=== PATIENT | female | born 1960 | race Caucasian/White ===

== ENCOUNTER → 2016-07-14 20:19 | Outpatient (CLI) | payer MEDICAID ==
[2016-06-20 20:15] VITALS: BMI 31.5
[~2016-07-14 20:19] MED LIST: BACTROBAN NASAL1 GM NASAL; BUDEPRION XL300 MG PO; BUTALB-APAP-CA1 EACH; CELEXA10 MG PO; CELEXA20 MG PO; CHRONULAC30 ML PO; CLONAZEPAM2 MG/TAB PO; CYCLOBENZAPRINE5 MG PO; ELIQUIS2.5 MG PO; HYDROCODON-ACE1 EAC7 PO; HYSINGLA ER30 MG PO; IBUPROFEN800 MG PO; K-DUR20 MEQ PO; KLONOPIN1 MG PO; LISINOPRIL5 MG PO; LITHIUM CARBON300 MG PO; NEURONTIN 300300 MG PO; NORCO 7.5/325 T1 TA1; NORVASC10 MG PO; OXYCODONE HCL5 MG PO; PERCOCET 10/3251 TA1 PO; REMERON15 MG PO; SYNTHROID25 MCG PO; TRIGLIDE160 MG PO; XANAX2 MG PO; ZESTORETIC 20/21 TAB PO; ZESTRIL40 MG PO
== END | disposition home or self-care (01) ==
LOC: D.LABREF 20:19
DX: M17.12 Unilateral primary osteoarthritis, left knee (principal); Z11.8 Encounter for screening for other infectious and parasitic diseases

== ENCOUNTER 2016-07-28 08:00 | Inpatient (IN) | payer MEDICAID ==
[~2016-07-28] VITALS: Ht 172.7 cm; Wt 95.0 kg
[~2016-07-28 08:00] MED LIST changes: -BACTROBAN NASAL1 GM NASAL; -ELIQUIS2.5 MG PO; -OXYCODONE HCL5 MG PO
[2016-07-28 08:12] LABS: BASOPHILS 0.5 % (0.0-2.0); EOSINOPHILS 1.3 % (0-7); HEMATOCRIT 43.3 % (36.0-48.0); HEMOGLOBIN 14.5 g/dL (12-16); IMMATURE GRANULOCYTES 0.1 % (0-5); LYMPHOCYTES 27.7 % (15-50); MCH 32.2 pg (26.0-34.0); MCHC 33.5 g/dL (31.0-37.0); MCV 96.2 fL (80.0-100.0); MONOCYTES 4.1 % (2-11); NEUTROPHILS 66.3 % (40-80); PLATELET COUNT 254 10x3/uL (130-400); RDW 13.1 % (11.5-14.5); WBC 7.8 10x3/uL (4.8-10.8)
[2016-07-28 08:13] LABS: APPEARANCE CLEAR (CLEAR); BILIRUBIN NEGATIVE (NEGATIVE); COLOR YELLOW (YELLOW); GLUCOSE NEGATIVE (NEGATIVE); KETONE NEGATIVE (NEGATIVE); LEUKOCYTE ESTERASE NEGATIVE (NEGATIVE); NITRITE NEGATIVE (NEGATIVE); PROTEIN NEGATIVE (NEGATIVE); UROBILINOGEN NORMAL (NORMAL)
[2016-07-28 08:21] LABS: ANION GAP 11.8 mmol/L (8-16); CALCIUM 9.7 mg/dL (8.5-10.1); CARBON DIOXIDE 28.2 mmol/L (21.0-32.0); CREATININE - SERUM 1.1 mg/dL (0.6-1.3)
[2016-07-28 08:25] LABS: INR 0.92 (0.85-1.17); PROTIME 12.2 SECONDS (11.6-15.0)
[2016-07-28] MEDS ORDERED: BACTROBAN NASAL1 GM NASAL (09:51)
[2016-08-02] VITALS (11 sets, daily range): BP systolic 80–140; BP diastolic 42–87; Ht 172.7 cm; Wt 95.0 kg
--- NOTE | 2016-08-02 10:50 | NUR ---
L-FOOT AND LEG WASHED WITH HIBICLENS AND ALCOHOL PRIOR TO CHLORPREP PER D.N.
--- NOTE | 2016-08-02 14:33 | NUR ---
ASSESSING PT LEFT KNEE. CARRINGTON WRAP SATURATED AND DRIPPING DOWN THIGH AND CALF. DRESSING REMOVED DOWN TO INCISION AND NOTED TOP/BOTTOM OF INCISION DRIPPING BLOOD. 4X4S ABD X 2 [address] CARRINGTON WRAP X [address] MENDOZA NOTIFIED. INSTRUCTED TO NOT PLACE ON CPM MACHINE TONIGHT.
--- NOTE | 2016-08-02 14:49 | NUR ---
1430-BP87/56 P 69 IV FLUIDS INCREASED TO 200CC/HR 1445-BP 79/47 P 61 IV FLUIDS INCREASED TO 400CC/HR 1450 BP 80/52 P 58. IV CONTINUES AT 400CC/HR NO NEW BLEEDING NOTED ON LEFT LEG/KNEE
--- NOTE | 2016-08-02 17:53 | NUR ---
1745 BP 97/52 P 66 NO ACTIVE OR NEW BLEEDING NOTED TO LEFT LEG/KNEE. IV FLUIDS TURNED DOWN TO 100CC/HR. WILL MONITOR BP Q 1 HR TONIGHT
[2016-08-03] VITALS: BP 101/71
[2016-08-03 04:00] VITALS: BP 100/54
[2016-08-03 05:29] LABS: HEMATOCRIT 32.2 % (36.0-48.0); HEMOGLOBIN 10.3 g/dL (12-16); MCH 31.1 pg (26.0-34.0); MCV 97.3 fL (80.0-100.0); MEAN PLATELET VOLUME 9.4 fL (7.4-10.4); RBC 3.31 10x6/uL (4.00-5.40); RDW 13.2 % (11.5-14.5); WBC 7.6 10x3/uL (4.8-10.8)
--- NOTE | 2016-08-03 07:00 | OP ---
PATIENT NAME: SWAPNA CAR MEDICAL RECORD: [id number] :64 LOCATION:D.MS [id number] ADMISSION DATE:08/02/16 SURGEON: EARLINE BRADFORD MD DATE OF OPERATION: 08/02/2016 PREOPERATIVE DIAGNOSIS: Left knee degenerative joint disease. POSTOPERATIVE DIAGNOSIS: Left knee degenerative joint disease. PROCEDURE PERFORMED: Left knee total knee arthroplasty using Biomet Vanguard system. SURGEON: Rafael Bradford MD ANESTHESIA: General with a block for postop pain. TOURNIQUET TIME: 44 minutes. ESTIMATED BLOOD LOSS: Minimal. CONDITION: She tolerated the procedure well, was transferred to recovery room in stable condition at termination of the procedure. INDICATIONS: This is a 56-year-old female with advanced degenerative changes in her knee. This has gotten progressively worse. She is no longer tolerating it. She presents wanting to proceed with the knee replacement. We did discuss the risks, benefits, and alternatives of this including blood loss, scar, pain, need for further procedure, anesthesia risk, nerve, artery and vein injuries. She understood and wished to proceed. OPERATIVE REPORT: The patient was taken to the operating room and placed in supine position. General anesthesia was obtained. She did get a block in the preop holding area. In the operating room, the left knee was confirmed to be the correct knee. It was then prepped and draped in standard fashion. We did do a timeout confirming the left knee to be the correct knee. She additionally had a positive swab; therefore, she did receive Ancef and vancomycin. Once this was accomplished and the initial prep was accomplished, she had a secondary ChloraPrep and then Ioban dressing placement. I then proceeded to make a midline incision followed by a medial parapatellar incision. After this was accomplished, I then proceeded to remove the fat pad. Elevated the medial soft tissue sleeve. The femur was entered, the guide was placed. Distal femoral cut was made. The distal femur was sized at a 60. The rest of the distal femoral cuts were then established. With this having been accomplished, I then subluxed the tibia forward, placed the guide and made a proximal tibial cut. I then placed the [address], placed the tibial tray, which was a 67 and then took the knee through range of motion and marking for rotation of the knee. I then went back and punched for a 67 tibia. Once this was accomplished, I then took off the back side of the patella, measured this at a 31, drilled the 3 peg holes for the 31 patellar. Trialed all 3 components which felt very good very stable in flexion and extension. I then copiously irrigated. Following which, I cemented into place a 60 femur, ____ tibia with a 3 peg hole 31 patellar button. The leg was held in extension while the cement dried. Once the cement was dry, I removed the excess cement and proceeded to place the final 12 poly. She was copiously irrigated. Following which, she was closed with a #1 barbed PDS followed by 2-0 Vicryl, then diane, placed in soft dressing, awakened and OPERATIVE REPORT [id number] SWAPNA CAR transferred to the recovery room in stable condition, having tolerated the procedure well. We will get her started on total knee arthroplasty protocols and proceed from this juncture. TRANSINT:[id number] Voice Confirmation ID: [id number] DOCUMENT ID: [id number] EARLINE BRADFORD MD at 0700 CC: [id number] DICTATION DATE: 08/02/16 1151 COMMUNITY MUSIC THERAPIST: 08/02/16 1221 ADM IN [place] [id number] [place] [id number]
[2016-08-03 07:58] VITALS: BP 105/50
--- NOTE | 2016-08-03 08:17 | CN ---
PATIENT NAME:SWAPNA CAR MEDICAL RECORD: [id number] : 64 LOCATION:D.[facility] ADMIT DATE: 08/02/16 ACCOUNT: [id number] CONSULTING PHYSICIAN: JONE MONTANA MD REFERRING PHYSICIAN: EARLINE BRADFORD MD DATE OF CONSULTATION: 08/02/2016 REQUESTING PHYSICIAN: Rafael Bradford MD. REASON FOR CONSULTATION: Medical management. HISTORY OF PRESENT ILLNESS: This 56-year-old white female was admitted for elective left total knee arthroplasty by Dr. Bradford today. Her primary care provider is a nurse practitioner or PA at "[facility]." She has a history of arthritis, depression, hypertension, anxiety. PAST SURGICAL HISTORY: ORIF of clavicle fracture, ORIF distal radius fracture. She has had a hysterectomy and now left total knee arthroplasty. ALLERGIES: CODEINE AND DARVOCET. HOME MEDICATIONS: Include Norvasc 10 mg a day, lisinopril 5 mg a day, Celexa 20 mg a day, Remeron 15 mg at bedtime, gabapentin 300 mg 3 times a day, Xanax 2 mg 3 times a day. SOCIAL HISTORY: She lives with friends. She is disabled. HABITS: She smokes. Denies alcohol. She admits to marijuana. FAMILY HISTORY: Unknown. PHYSICAL EXAMINATION: VITAL SIGNS: Temperature 96.8, pulse 59, respirations 18, blood pressure 81/51, O2 sat 98% on room air. GENERAL: She is little lethargic due to pain medicine. HEENT: Grossly within normal limits. NECK: Supple. No thyromegaly. HEART: Regular rate and rhythm. LUNGS: Clear. ABDOMEN: Soft. EXTREMITIES: Left knee is in a dressing. NEUROLOGIC: Again, lethargic probably due to pain medicines. ASSESSMENT: 1. Hypertension. 2. Osteoarthritis, status post left total knee arthroplasty. 3. Anxiety. 4. Depression. PLAN: We will hold her blood pressure medicines. We will give her some fluids. We will monitor her medical problems while she is in the hospital. Thank for the consult. We will continue to follow. TRANSINT:[id number] Voice Confirmation ID: [id number] DOCUMENT ID: [id number] CONSULT REPORT [id number] SWAPNA CAR WILLIAM MD at 0817 CC: [id number] DICTATION DATE: 08/02/16 185 SORTING COWS WORKER: 08/02/16 221 ADM IN [place] [id number] [place] [id number]
--- NOTE | 2016-08-03 11:17 | NUR ---
PT SEEN THIS AM. WAS SMOKING IN ROOM THIS AM. CIGARETTES AND MEDICAL ADVISOR REMOVED. APOLOGIZED. WALKED FEW STEPS WITH THERAPY. DRESSING TO LEFT LEG NOTED WITH SMALL AMOUNT OF DRY DRAINAGE NOTED. CURRENTLY IN CHAIR
[2016-08-03 12:17] VITALS: BP 106/61
--- NOTE | 2016-08-03 13:34 | NUR ---
* Is the patient Alert and Oriented? Yes 0 * How many steps to enter\exit or inside your home? 7-8 0 * PCP SUSANA Zabala 0 * Pharmacy [facility] 0 * Preadmission Environment Home with Family 0 * ADLs Independent 0 * Equipment Rolling Walker 0 * List name and contact numbers for known caregivers / representatives who currently or will assist patient after discharge: Sister in Law - Jeannine Correia [phone] 0 * Additional services required to return to the preadmission environment? Yes 0 * Can the patient safely return to the preadmission environment? Yes 0 * Has this patient been hospitalized within the prior 30 days at any hospital? No 08/03/2016 13:31 DCP: Discharge Planning Patient Name: SWAPNA CAR Admission Status: Elective Accout number: [id number] Admission Date: 08-02-2016 : 1960 Admission Diagnosis: Attending: FREDA Current LOS: 1 Anticipated DC Date: 08-04-2016 Planned Disposition: Outpatient PT\OT Primary Insurance: MEDICAID [place] Discharge Planning Comments: CM met with patient to assess dc plans/needs. Patient states she lives at home with family & is independent with all ADL's. She has a rolling walker. At dc, she will go stay with her sister in law for a couple of weeks. She has chosen [facility] for outpatient physical therapy. Appt. scheduled for 08/05 @ 3415. Anticipate DC tomorrow afternoon. CM will follow. Education Dean: Belinda Cloin
[2016-08-03 15:53] VITALS: BP 101/46
--- NOTE | 2016-08-03 18:19 | NUR ---
PT CURRENTLY IN CP MACHINE WITH SCD ON AND NO BLEEDING NOTED ON DRESSING WHICH REMAINS DRY AND INTACT. CALL LIGHT IN REACH AND PAIN IS CONTROLLED.
--- NOTE | 2016-08-03 19:00 | NUR ---
PATIENT IN BED WATCHING TV ON CPM. HOB 30 DEGREES. AAOX4. RR EVEN AND UNLABORED. 0 S/S OF DISTRESS. STATES PAIN IS A 10/10. IV TO RIGHT FA PATENT WITH NO REDNESS OR SWELLING. DRESSING TO LEFT KNEE IN PLACE WITH SMALL AMOUNT OF OLD, DRIED BLOOD. SCD'S IN ROOM BUT OFF. SRX2. BED LOW. CALL LIGHT WITHIN REACH.
[2016-08-03 21:00] VITALS: BP 146/53
[2016-08-04 04:00] VITALS: BP 114/66
[2016-08-04 05:02] LABS: HEMATOCRIT 30.8 % (36.0-48.0); HEMOGLOBIN 9.9 g/dL (12-16); MCH 31.7 pg (26.0-34.0); MCHC 32.1 g/dL (31.0-37.0); MCV 98.7 fL (80.0-100.0); MEAN PLATELET VOLUME 9.3 fL (7.4-10.4); RBC 3.12 10x6/uL (4.00-5.40); RDW 13.3 % (11.5-14.5); WBC 7.8 10x3/uL (4.8-10.8)
--- NOTE | 2016-08-04 07:25 | NUR ---
PATIENT SPILLED COFFEE ON HER BED. ASSISTED SEAM STEAMER, TAKING PATIENT OFF OF CPM, CHANGING LINENS. SEAM STEAMER ASSISTED PATIENT TO THE BATHROOM, USING WALKING. PATIENT VOIDED, BACK TO BED WITH ASSIST FROM SEAM STEAMER. ASSISTED SEAM STEAMER PUTTING CPM BACK ON. PATIENT STATED "I THINK I CAN HAVE MY NEXT PAIN PILL AT 0800. MY PAIN IS AT A 10 SO I WOULD LIKE TO HAVE MY PAIN MEDICATION SOON I CAN GET IT." REMINDED PATIENT NOT TO GET UP BY HERSELF AT ANY TIME WHILE HERE, PATIENT VERBALIZED UNDERSTANDING. BED ALARM ON.
[2016-08-04 08:08] VITALS: BP 114/70
--- NOTE | 2016-08-04 09:51 | NUR ---
08/04/2016 9:49 DCP: Discharge Planning Patient Name: SWAPNA CAR Encounter No: [id number] : 1960 Primary Insurance: MEDICAID [facility] DC Date: 08-04-2016 Planned Disposition: Outpatient PT\OT External Planned Provider: [facility] DCP follow-up note: DC order rec'd. Patient and family in agreement with discharge plan. No changes to plan. Belinda Colin
[2016-08-04 11:18] VITALS: BP 146/73
[2016-08-04] MEDS ORDERED: ELIQUIS2.5 MG PO (12:18)
[2016-08-04] MEDS ORDERED: OXYCODONE HCL5 MG PO (12:18)
--- NOTE | 2016-08-04 14:30 | NUR ---
D/C IV WITH CATH INTACT. DISCHARGE INSTRUCTIONS COMPLETED WITH PATIENT. PATIENT VERBALIZED UNDERSTANDING AND DENIES QUESTIONS. CHANGED DRESSING TO LEFT KNEE. STERILE TECHNIQUE MAINTAINED. PATIENT TOLERATED WELL. AQUACEL DRESSING APPLIED.
--- NOTE | 2016-08-04 14:51 | NUR ---
PATIENT LEFT VIA WHEELCHAIR
--- NOTE | 2016-09-13 16:33 | DS ---
PATIENT:SWAPNA CAR :[birth year] MEDICAL RECORD: [id number] DISCHARGE SUMMARY ADMISSION DATE: 08/02/16 DISCHARGE DATE: 08/04/16 DATE OF ADMISSION: 08/02/2016 DATE OF DISCHARGE: 08/04/2016 ADMITTING DIAGNOSIS: Left knee degenerative joint disease. DISCHARGE DIAGNOSES: Left knee degenerative joint disease, acute blood loss anemia. HISTORY OF PRESENT ILLNESS: This is a pleasant 56-year-old female with advanced degenerative changes of her left knee. She presented to the hospital and underwent a left total knee arthroplasty. She tolerated the procedure well. She progressed nicely with her postop therapy. It was felt that by the , she could be discharged to home to continue on rehabing of a total knee arthroplasty with outpatient physical therapy. She is going to continue on pain medications, anticoagulation therapy. She was then discussed with wound care to keep clean the knee incision. She is supposed to see me back in the office in about 2 weeks and call if she has any problems. TRANSINT:[id number] Voice Confirmation ID: [id number] DOCUMENT ID: [id number] EARLINE MENDOZA MD at 1633 CC: [id number] DICTATION DATE: 09/06/16 1257 HANDKERCHIEF MAKER: 09/07/16 0136 DIS IN 08/04/16 [place] [id number] [place] [address]
== END 2016-08-04 14:55 | disposition home or self-care (01) | DRG 470 ==
LOC: D.SDCHOLD 08-02 06:05 → D.MS 08-02 06:05 → D.SDCHOLD 08-02 08:00 → D.MS 08-02 10:59
PROVIDERS: ADMIT Orthopaedic Surgery Sports Medicine
PROC: 0SRD0J9 Replacement of Left Knee Joint with Synthetic Substitute, Cemented, Open Approach (ICD-10-PCS; principal; 2016-08-02 09:15)
DX: M17.12 Unilateral primary osteoarthritis, left knee (principal); G62.9 Polyneuropathy, unspecified; K75.9 Inflammatory liver disease, unspecified; F32.9 Major depressive disorder, single episode, unspecified; F41.9 Anxiety disorder, unspecified; I10 Essential (primary) hypertension; F17.200 Nicotine dependence, unspecified, uncomplicated

== ENCOUNTER 2016-09-07 15:16 | Emergency (ER) | payer MEDICAID ==
[2016-08-02 12:45] VITALS: BMI 31.8
[~2016-09-07 15:16] MED LIST changes: +BACTROBAN NASAL1 GM NASAL; +ELIQUIS2.5 MG PO; +OXYCODONE HCL5 MG PO
[2016-09-07 18:32] LABS: BASOPHILS 0.3 % (0.0-2.0); HEMATOCRIT 41.3 % (36.0-48.0); HEMOGLOBIN 12.9 g/dL (12-16); IMMATURE GRANULOCYTES 0.3 % (0-5); LYMPHOCYTES 20.7 % (15-50); MCH 31.1 pg (26.0-34.0); MCHC 31.2 g/dL (31.0-37.0); MCV 99.5 fL (80.0-100.0); MEAN PLATELET VOLUME 9.1 fL (7.4-10.4); MONOCYTES 6.9 % (2-11); NEUTROPHILS 70.8 % (40-80); RBC 4.15 10x6/uL (4.00-5.40); RDW 13.2 % (11.5-14.5); WBC 15.2 10x3/uL (4.8-10.8)
[2016-09-07 19:02] LABS: PLATELET COUNT 272 10x3/uL (130-400)
== END 2016-09-07 19:30 | disposition home or self-care (01) ==
LOC: D.ER 15:16
PROVIDERS: Nurse Practitioner Family
DX: M25.462 Effusion, left knee (principal); W19.XXXA Unspecified fall, initial encounter; Y93.89 Activity, other specified; Y92.89 Other specified places as the place of occurrence of the external cause; F17.200 Nicotine dependence, unspecified, uncomplicated

== ENCOUNTER 2016-09-23 13:26 | Emergency (ER) | payer MEDICAID ==
[2016-08-02 12:45] VITALS: BMI 31.8
== END 2016-09-23 15:49 | disposition home or self-care (01) ==
LOC: D.ER 13:26
DX: S80.02XA Contusion of left knee, initial encounter (principal); W19.XXXA Unspecified fall, initial encounter; Y93.89 Activity, other specified; Y92.019 Unspecified place in single-family (private) house as the place of occurrence of the external cause; S93.602A Unspecified sprain of left foot, initial encounter; F41.9 Anxiety disorder, unspecified; M54.5 Low back pain; F17.200 Nicotine dependence, unspecified, uncomplicated; F15.10 Other stimulant abuse, uncomplicated

== ENCOUNTER → 2016-10-25 15:00 | Outpatient (CLI) | payer MEDICAID ==
[2016-08-02 12:45] VITALS: BMI 31.8
== END | disposition home or self-care (01) ==
LOC: D.MRI 15:00
DX: R20.8 Other disturbances of skin sensation (principal)

== ENCOUNTER 2016-11-27 10:19 | Emergency (ER) | payer MEDICAID ==
[2016-08-02 12:45] VITALS: BMI 31.8
[2016-11-27 11:59] LABS: BASOPHILS 0.1 % (0-2); EOSINOPHILS 1.1 % (0-7); HEMATOCRIT 42.8 % (36.0-48.0); HEMOGLOBIN 14.4 g/dL (12-16); IMMATURE GRANULOCYTES 0.1 % (0-5); MCH 30.4 pg (26.0-34.0); MCHC 33.6 g/dL (31.0-37.0); MCV 90.5 fL (80.0-100.0); MEAN PLATELET VOLUME 9.3 fL (7.4-10.4); MONOCYTES 3.2 % (2-11); NEUTROPHILS 62.5 % (40-80); PLATELET COUNT 232 10x3/uL (130-400); RBC 4.73 10x6/uL (4.00-5.40); RDW 13.5 % (11.5-14.5); WBC 7.4 10x3/uL (4.8-10.8)
== END 2016-11-27 13:38 | disposition home or self-care (01) ==
LOC: D.ER 10:19
PROVIDERS: Nurse Practitioner Acute Care
DX: S23.3XXA Sprain of ligaments of thoracic spine, initial encounter (principal); X58.XXXA Exposure to other specified factors, initial encounter; Y93.89 Activity, other specified; Y92.89 Other specified places as the place of occurrence of the external cause; L03.116 Cellulitis of left lower limb; F17.200 Nicotine dependence, unspecified, uncomplicated

== ENCOUNTER 2016-12-05 11:43 | Inpatient (IN) | payer MEDICAID ==
[~2016-12-05] VITALS: Ht 172.7 cm; Wt 100.0 kg
[2016-12-05 12:45] LABS: BASOPHILS 0.4 % (0-2); EOSINOPHILS 2.6 % (0-7); HEMATOCRIT 38.1 % (36.0-48.0); HEMOGLOBIN 12.6 g/dL (12-16); IMMATURE GRANULOCYTES 0.1 % (0-5); LYMPHOCYTES 22.5 % (15-50); MCH 29.9 pg (26.0-34.0); MCHC 33.1 g/dL (31.0-37.0); MCV 90.3 fL (80.0-100.0); MEAN PLATELET VOLUME 9.4 fL (7.4-10.4); MONOCYTES 6.8 % (2-11); NEUTROPHILS 67.6 % (40-80); PLATELET COUNT 223 10x3/uL (130-400); RBC 4.22 10x6/uL (4.00-5.40); RDW 14.1 % (11.5-14.5); WBC 7.8 10x3/uL (4.8-10.8)
--- NOTE | 2016-12-05 13:00 | NUR ---
PT TO ROOM [address] [facility]. PT IS VERY SEDATED AND UNABLE TO ANSWER MOST QUESTIONS.SHE FALLS ASLEEP EASILY.HER SPEECH IS VERY GARBLED.UNABLE TO ANSWER QUESTIONS FOR EMERGENCY CONTACT,HT,WT.BOTTLES OF XANAX FOUND WHEN PT WAS DIGGING IN PURSE UPON ARRIVAL TO ROOM.MEDS TO PHARMACY,SHE IS UNABLE TO SIGN SHEET.FALL PREVENTION INITIATED.
[2016-12-05 13:09] LABS: C-REACTIVE PROTEIN 7.1 mg/dL (0.0-0.9); CALC OSMOLALITY 281 mosm/kg (275-300); CALCIUM 8.7 mg/dL (8.5-10.1); CARBON DIOXIDE 26.1 mmol/L (21.0-32.0); CHLORIDE - SERUM 107 mmol/L (98-107); CREATININE - SERUM 0.7 mg/dL (0.6-1.3); GLUCOSE 96 mg/dL (74-106); POTASSIUM - SERUM 4.7 mmol/L (3.5-5.1); SODIUM 141 mmol/L (136-145); UREA NITROGEN 16 mg/dL (7-18); eGFR NON AFRICAN AMERICAN > 90 mL/min (90-120)
--- NOTE | 2016-12-05 13:30 | NUR ---
IV ATTEMPTED X2 BY VIJAYA JEAN RN,BUT UNABLE TO OBTAIN IV.CALL TO [place] SALDA[facility]A
[2016-12-05 13:31] VITALS: BP 118/76; Ht 172.7 cm; Wt 100.0 kg
[2016-12-05 14:02] VITALS: BP 118/76
[2016-12-05 14:10] LABS: ERYTHROCYTE SEDIMENTATION RATE 23 mm/hr (0-30)
--- NOTE | 2016-12-05 15:25 | NUR ---
IV SITED BY VASCULAR NURSE AFTER MULTIPLE ATTEMTS TO LEFT AC,20G.
--- NOTE | 2016-12-05 15:30 | NUR ---
PT STII VERY LETHARGIC AT THIS TIME.HARD TO AROUSE.
--- NOTE | 2016-12-05 16:25 | NUR ---
HARD TO AROUSE JUST FOR BRIEF AMOUNT,VS 129/77,68,18,96.9,94% ON ROOM AIR.
--- NOTE | 2016-12-05 18:47 | NUR ---
REMAINS WITHOUT NEEDS.AWAKE NOW.HAS EATEN SOME DINNER.CONT PLAN OF CARE
--- NOTE | 2016-12-05 19:52 | NUR ---
IV SWOLLEN AND RED.IV DCD WITH CATH INTACT.
[2016-12-05 20:00] VITALS: BP 140/62
--- NOTE | 2016-12-05 20:00 | NUR ---
ASSESSMENT PER FLOWSHEET. NO IV HAS BEEN STUCK SEVERAL TIMES BY PREVIOUS SHIFT UNABLE TO OBTAIN IV SITE. WAS NOTIFIED BY JEFF HALL RN. PT SITTING UPRIGHT IN BED JERRICA BED ALARM MAT ON SR UP X1 CALL LIGHT WITHIN REACH. PT HAS FALLEN SEVERAL TIMES AT HOME.
--- NOTE | 2016-12-05 21:41 | NUR ---
C/O CHRONIC BACK PAIN. RATES PAIN LEVEL #6-8. IN HER BACK. OXI IR 5MG PO TAB ONE GIVEN FOR PAIN CONTROL.
--- NOTE | 2016-12-05 22:00 | NUR ---
PT EATING SANDWICH TRAY 4 ICE CREAMS AND A CUP OF COFFEE. HAS ALREADY DRANK 2 SODAS.
--- NOTE | 2016-12-06 | NUR ---
PT REQUESTING MORE COFFEE. COFFEE GIVEN TO PATIENT. VOIDED ON BEDPAN.
--- NOTE | 2016-12-06 03:00 | NUR ---
DRESSING TO LEFT KNEE C/D/I. EYES CLOSED RESPIRATIONS WITH EASE AND UNLABORED.
[2016-12-06 04:00] VITALS: BP 140/65
--- NOTE | 2016-12-06 04:10 | NUR ---
MINE FOREMAN HERE FOR BLOOD DRAW. PT C/O LOW BACK PAIN RATES PAIN LEVEL #6-8 OXI IR 5MG PO GIVEN FOR PAIN CONTROL. COFFEE GIVEN TO PATIENT.
--- NOTE | 2016-12-06 05:25 | NUR ---
RESTING IN BED WATCHING TV
[2016-12-06 05:50] LABS: BASOPHILS 0.4 % (0-2); EOSINOPHILS 3.2 % (0-7); HEMATOCRIT 36.3 % (36.0-48.0); HEMOGLOBIN 11.9 g/dL (12-16); IMMATURE GRANULOCYTES 0.1 % (0-5); LYMPHOCYTES 37.7 % (15-50); MCH 30.4 pg (26.0-34.0); MCHC 32.8 g/dL (31.0-37.0); MEAN PLATELET VOLUME 9.2 fL (7.4-10.4); MONOCYTES 7.1 % (2-11); NEUTROPHILS 51.5 % (40-80); PLATELET COUNT 230 10x3/uL (130-400); RBC 3.92 10x6/uL (4.00-5.40); RDW 14.3 % (11.5-14.5); WBC 6.9 10x3/uL (4.8-10.8)
[2016-12-06 06:00] LABS: MCV 92.6 fL (80.0-100.0)
[2016-12-06 06:26] LABS: CALC OSMOLALITY 279 mosm/kg (275-300); CALCIUM 8.2 mg/dL (8.5-10.1); CARBON DIOXIDE 25.4 mmol/L (21.0-32.0); CHLORIDE - SERUM 106 mmol/L (98-107); CREATININE - SERUM 0.8 mg/dL (0.6-1.3); GLUCOSE 98 mg/dL (74-106); POTASSIUM - SERUM 4.5 mmol/L (3.5-5.1); SODIUM 140 mmol/L (136-145); UREA NITROGEN 15 mg/dL (7-18); eGFR NON AFRICAN AMERICAN 79 mL/min (90-120)
[2016-12-06 08:18] VITALS: BP 125/77
--- NOTE | 2016-12-06 08:38 | NUR ---
AWAKE AND ALERT AT THIS TIME. UP TO BATHROOM WITH JERRICA MAT ALARMING. EXPLAINED TO PT THAT SHE MUST GET UP WITH ASSISTANCE. ASSISTED PT BACK TO BED AND JERRICA MAT ALARM TURNED ON. DOOR OPEN AND CALL LIGHT IN REACH. WILL CONTINUE WITH PLAN OF CARE.
--- NOTE | 2016-12-06 08:38 | NUR ---
SCHEDULED MEDICATIONS ADMINISTERED AT THIS TIME WITHOUT DIFFICULTY. PRN OXY-IR ADMINISTERED FOR PAIN 02/09. CALL LIGHT IN REACH AND JERRICA MAT ALARM ON AND IN USE. CALL LIGHT IN REACH, WILL CONTINUE WITH PLAN OF CARE.
[2016-12-06 11:47] VITALS: BP 146/85
[2016-12-06 16:46] VITALS: BP 123/68
[2016-12-06 20:00] VITALS: BP 154/67
--- NOTE | 2016-12-06 20:00 | NUR ---
ASSESSMENT PER FLOWSHEET. LEFT AC PICC LINE IN PLACE WITH 1/2NS AT 50CC'S/HR. SITE CLEAR. JERRICA BED ALARM MAT ON SR UP X2 CALL LIGHT WITHIN REACH. DRESSING TO LEFT KNEE C/D/I.
--- NOTE | 2016-12-06 22:00 | NUR ---
MEDS GIVEN PER AUG. XANAX 2MG PO GIVEN FOR ANXIETY. UP TO BR WITH HELP VOIDS WELL.
--- NOTE | 2016-12-06 22:42 | NUR ---
C/O BACK PAIN(CHRONIC). RATES PAIN 6-8. OXY IR 5MG PO GIVEN FOR PAIN CONTROL.
[2016-12-07] VITALS: BP 162/66
--- NOTE | 2016-12-07 00:14 | NUR ---
EYES CLOSED RESPIRATIONS WITH EASE AND UNLABORED.
--- NOTE | 2016-12-07 00:39 | NUR ---
AWAKE ON BEDPAN TO VOID.
[2016-12-07 04:00] VITALS: BP 151/70
[2016-12-07 05:16] LABS: BASOPHILS 0.3 % (0-2); EOSINOPHILS 2.3 % (0-7); HEMATOCRIT 36.8 % (36.0-48.0); IMMATURE GRANULOCYTES 0.5 % (0-5); LYMPHOCYTES 27.6 % (15-50); MCH 29.6 pg (26.0-34.0); MCHC 32.6 g/dL (31.0-37.0); MCV 90.9 fL (80.0-100.0); MEAN PLATELET VOLUME 8.9 fL (7.4-10.4); MONOCYTES 7.1 % (2-11); NEUTROPHILS 62.2 % (40-80); PLATELET COUNT 226 10x3/uL (130-400); RBC 4.05 10x6/uL (4.00-5.40); WBC 6.6 10x3/uL (4.8-10.8)
[2016-12-07 05:44] LABS: CALC OSMOLALITY 274 mosm/kg (275-300); CALCIUM 8.5 mg/dL (8.5-10.1); CARBON DIOXIDE 28.3 mmol/L (21.0-32.0); CHLORIDE - SERUM 104 mmol/L (98-107); CREATININE - SERUM 0.7 mg/dL (0.6-1.3); GLUCOSE 98 mg/dL (74-106); POTASSIUM - SERUM 3.9 mmol/L (3.5-5.1); SODIUM 138 mmol/L (136-145); eGFR NON AFRICAN AMERICAN > 90 mL/min (90-120)
[2016-12-07 05:47] LABS: UREA NITROGEN 10 mg/dL (7-18)
--- NOTE | 2016-12-07 07:40 | NUR ---
ASSESSMENT COMPLETE. L PICC LINE PATENT. /2 NS INFUSING AT 50 CC/HR VIA PUMP. DRESSING INTACT TO L KNEE. JERRICA MAT IN USE. DENIES ANY NEEDS AT PRESENT.
[2016-12-07 07:49] VITALS: BP 154/76
--- NOTE | 2016-12-07 09:25 | NUR ---
DRESSING TO L KNEE CHANGED. WOUND CLEANED WITH WOUND CLEANSER. WOUND COVERED WITH 4X4'S, ABD PAD AND SPANDAGE.
--- NOTE | 2016-12-07 12:00 | NUR ---
RESTING QUIETLY IN BED.
[2016-12-07 12:19] VITALS: BP 136/84
--- NOTE | 2016-12-07 13:42 | NUR ---
* Is the patient Alert and Oriented? Yes 0 * How many steps to enter\\exit or inside your home? 0 0 * PCP [facility]ANDA MAHONEY [facility] 0 * Pharmacy [facility] 0 * Preadmission Environment Residential 0 * Facility Name [facility] WITH ROOM MATES 0 * ADLs Independent 0 * Equipment Walker 0 * Community resources currently utilized None 0 * Additional services required to return to the preadmission environment? Yes 0 * Can the patient safely return to the preadmission environment? No 0 * Has this patient been hospitalized within the prior 30 days at any hospital? No 0 Grand Total: 0 Patient Name: SWAPNA CAR Admission Status: Elective Accout number: [id number] Admission Date: 12-05-2016 : 1960 Admission Diagnosis:INFECT/INFLM REACTION DUE TO INTERNAL R KNEE PROSTH, IN Attending: RADHA Current LOS: 2 Anticipated DC Date: Planned Disposition: Home Primary Insurance: MEDICAID [place] Discharge Planning Comments: CM met with patient to assess discharge planning needs. Patient currently lives in a home with "ROOMMATES" & her roommate Aida Murillo ([phone]) will pick her up when the time comes. She states that she would like to go to an inpatient rehab if possible so her wound can heal. CM has a call into [facility] (LILLIAM signed) Pt has a walker at home. CM denies any stairs in her home and stated that the environment is safe. CM will continue to assist and follow as needed with discharge planning/needs. PCP: Amanda Mahoney [facility] Pharmacy: [facility] Aida Murillo (roommate) [phone] House Piping Inspector: Neetu Mcghee
--- NOTE | 2016-12-07 14:30 | NUR ---
DENIES ANY NEEDS AT PRESENT.
--- NOTE | 2016-12-07 15:28 | NUR ---
CIGARETTE SMOKE IN ROOM. ASKED PT IF SHE WAS SMOKING AND SHE STATED YES. CIGAREETES AND CRUDE UNIT OPERATOR HANDED TO NURSE
[2016-12-07 15:35] VITALS: BP 124/68
--- NOTE | 2016-12-07 17:57 | NUR ---
PICC LINE DRESSING CHANGED TO LEFT UPPER FOREARM. SITE WITH NO REDDNESS OR DRAINAGE NOTED. CHANGED PER PROTOCOL AND DATED.
[2016-12-07 20:00] VITALS: BP 142/58
--- NOTE | 2016-12-07 20:00 | NUR ---
ASSESSMENT PER FLOWSHEET. LEFT ARM PICC LINE IN PLACE WITH 1/2NS INFUSING AT 50CC'S/HR. SITE CLEAR. DRESSING TO LEFT KNEE INTACT. REFUSES SCD'S. JERRICA BED ALARM MAT IN PLACE.
--- NOTE | 2016-12-07 21:00 | NUR ---
MEDS GIVEN PER AUG. UP WITH USE OF WALKER AND PARTIAL HELP TO BR VOIDS WELL.
--- NOTE | 2016-12-07 22:48 | NUR ---
C/O PAIN IN BACK(CHRONIC). OXY IR 10 MG PO GIVEN FOR PAIN CONTROL. DRESSING TO LEFT KNEE CHANGED WITH 4X4 AND ABD. STOCKINGNET TO SITE.
[2016-12-08] VITALS (13 sets, daily range): BP systolic 108–174; BP diastolic 60–88
--- NOTE | 2016-12-08 | NUR ---
EYES CLOSED RESPIRATIONS WITH EASE AND UNLABORED. INFORMED OF NPO STATUS AFTER MIDNIGHT FOR POSSIBLE SURGERY IN AM.
--- NOTE | 2016-12-08 03:00 | NUR ---
EYES CLOSED RESPIRATIONS WITH EASE AND UNLABORED.
[2016-12-08 05:52] LABS: BASOPHILS 0.3 % (0-2); EOSINOPHILS 3.5 % (0-7); HEMATOCRIT 34.9 % (36.0-48.0); HEMOGLOBIN 11.4 g/dL (12-16); IMMATURE GRANULOCYTES 0.2 % (0-5); LYMPHOCYTES 32.1 % (15-50); MCH 29.7 pg (26.0-34.0); MCHC 32.7 g/dL (31.0-37.0); MCV 90.9 fL (80.0-100.0); MEAN PLATELET VOLUME 8.9 fL (7.4-10.4); MONOCYTES 9.6 % (2-11); NEUTROPHILS 54.3 % (40-80); PLATELET COUNT 211 10x3/uL (130-400); RBC 3.84 10x6/uL (4.00-5.40); RDW 13.9 % (11.5-14.5); WBC 6.1 10x3/uL (4.8-10.8)
[2016-12-08 06:09] LABS: CALC OSMOLALITY 275 mosm/kg (275-300); CALCIUM 8.5 mg/dL (8.5-10.1); CARBON DIOXIDE 30.2 mmol/L (21.0-32.0); CHLORIDE - SERUM 102 mmol/L (98-107); CREATININE - SERUM 0.7 mg/dL (0.6-1.3); GLUCOSE 98 mg/dL (74-106); POTASSIUM - SERUM 3.9 mmol/L (3.5-5.1); SODIUM 138 mmol/L (136-145); UREA NITROGEN 12 mg/dL (7-18); eGFR NON AFRICAN AMERICAN > 90 mL/min (90-120)
--- NOTE | 2016-12-08 07:25 | NUR ---
RESTING QUIETLY IN BED. DENIES ANY NEEDS AT PRESENT.
--- NOTE | 2016-12-08 09:00 | NUR ---
ASSESSMENT COMPLETE. L PICC PATENT. 1/2 NS INFUSING AT 50 CC/HR VIA PUMP. NPO FOR SURGERY TODAY. DRESSING TO L KNEE INTACT. JERRICA MAT IN USE.
--- NOTE | 2016-12-08 10:24 | NUR ---
Patient request that we inform her Ferry Operator that she is in the hospital. She gave me the name of Parveen Gardner ) Information sheet faxed.
--- NOTE | 2016-12-08 10:46 | NUR ---
OK TO GIVE OXY IR PER AMADEO IN [place]. OXY IR GIVEN FOR COMPLAINT OF KNEE PAIN.
--- NOTE | 2016-12-08 12:00 | NUR ---
NO CHANGES NOTED AT PRESENT.
--- NOTE | 2016-12-08 15:30 | NUR ---
CONTINUES WAITING FOR SURGERY.
--- NOTE | 2016-12-08 18:00 | NUR ---
OFF FLOOR TO OR VIA BED.
--- NOTE | 2016-12-08 20:29 | NUR ---
PT STILL VOCALIZED PAIN 10/10 ON NUMERIC SCALE. I VOCALIZED THAT I HAVE GIVEN ALL THAT IS ORDERED TO GIVE FOR PAIN. PT VOICED"I UNDERSTAND, USUALLY 1MG OF DILAUDID HELPS MY PAIN, BUT THIS REALLY HURTS". ASSESSED PT KNEE AND NO REDDNESS OR INFLAMATION IS NOTIED. PULSES ARE STRONG AND PALPATED IN THE LEFT LOWER LEG. CAP REFILL IS <3SECONDS AND FOOT IS WARM TO TOUCH. PT IS ASKING FOR DRINK AND FOOD AT THIS TIME. WILL LET ANESTHESIA KNOW ABOUT PT CONTINUED PAIN. WILL CONITNUE TO MONITOR.
--- NOTE | 2016-12-09 01:36 | NUR ---
RECEIVED PT TO FLOOR FROM SURGERY @ 2100. PT C/O KNEE AND LOWER BACK PAIN 04/11. INIATED CUSTOMER LEADER AND INSERTED SERRA CATHETER. IMMOBILIZER ON LEFT KNEE WITH MODERATE BLEEDING THROUGH TO BED SHEETS. CHANGED BEDDING AND PLACED ABSORBENT PAD UNDER KNEE. VITALS SIGNS STABLE. PT SITTING UP IN BED EATING AND DRINKING. STATES PAIN IS BETTER NOW. WILL CONTINUE TO MONITOR.
[2016-12-09 01:45] VITALS: BP 124/74
[2016-12-09 04:00] VITALS: BP 127/79
[2016-12-09 06:05] LABS: BASOPHILS 0 % (0-2); EOSINOPHILS 0 % (0-7); HEMOGLOBIN 11.2 g/dL (12-16); IMMATURE GRANULOCYTES 0.3 % (0-5); LYMPHOCYTES 7.2 % (15-50); MCH 29.9 pg (26.0-34.0); MCHC 32.9 g/dL (31.0-37.0); MCV 90.9 fL (80.0-100.0); MEAN PLATELET VOLUME 8.7 fL (7.4-10.4); MONOCYTES 4.8 % (2-11); NEUTROPHILS 87.7 % (40-80); PLATELET COUNT 235 10x3/uL (130-400); RBC 3.74 10x6/uL (4.00-5.40); RDW 13.5 % (11.5-14.5)
[2016-12-09 06:09] LABS: WBC 7.7 10x3/uL (4.8-10.8)
[2016-12-09 06:27] LABS: ANION GAP 11.7 mmol/L (8-16); CARBON DIOXIDE 27.7 mmol/L (21.0-32.0); POTASSIUM - SERUM 4.4 mmol/L (3.5-5.1); VANCOMYCIN - TROUGH 17.6 ug/mL (10.0-20.0)
[2016-12-09 06:28] LABS: CREATININE - SERUM 0.9 mg/dL (0.6-1.3)
--- NOTE | 2016-12-09 08:00 | NUR ---
ASSESSMENT COMPLETE. L PICC PATENT. 1/2 NS INFUSING AT 50 CC/HR VIA PUMP. GROUP HOME MANAGER DILAUDID 0.2-10-4 IN USE FOR PAIN CONTROL. O2 2L NC IN USE. IMMOBILIZER IN USE TO LLE. ICE PACKS IN USE. DRESSING TO LLE WITH BLOODY DRAINAGE NOTED. SERRA PATENT DRAINING YELLOW URINE. SCD IN USE TO RLE.
[2016-12-09 08:16] VITALS: BP 126/70
--- NOTE | 2016-12-09 08:50 | NUR ---
DRESSING TO L KNEE CHANGED. INCISION CLEANED WITH CLEANSER AND COVERED WITH AQUACEL AG DRESSING, ABD PAD, AND CARRINGTON WRAP. L PEDAL PULSE EASILY PALPATED.
--- NOTE | 2016-12-09 12:00 | NUR ---
NO CHANGES NOTED AT PRESENT.
[2016-12-09 12:37] VITALS: BP 108/75
--- NOTE | 2016-12-09 13:54 | NUR ---
NUTRITION MONITORING & EVAL CHART REVIEWED, PT VISIT. TOLERATING REG DIET, GOOD PO INTAKE. REMAINS AT LOW NUTRITIONAL RISK. RD FOLLOWING
--- NOTE | 2016-12-09 15:25 | NUR ---
VISITING WITH FAMILY. NO NEEDS VOICED AT PRESENT.
[2016-12-09 16:48] VITALS: BP 114/68
--- NOTE | 2016-12-09 18:32 | NUR ---
DENIES ANY NEEDS AT PRESENT. RESTING QUIETLY IN BED.
[2016-12-09 18:46] LABS: UDS - AMPHET NEGATIVE QUAL (NEGATIVE); UDS - BARB NEGATIVE QUAL (NEGATIVE); UDS - BENZO POSITIVE QUAL (NEGATIVE); UDS - COCAINE NEGATIVE QUAL (NEGATIVE); UDS - METH NEGATIVE QUAL (NEGATIVE); UDS - OPIATE POSITIVE QUAL (NEGATIVE); UDS - PCP NEGATIVE QUAL (NEGATIVE); UDS - THC NEGATIVE QUAL (NEGATIVE)
[2016-12-10] VITALS: BP 96/52
--- NOTE | 2016-12-10 02:15 | NUR ---
RESTING WITH EYES CLOSED, NO DISTRESS NOTED, FALL PRECAUTIONS IN PLACE, CL IN REACH
[2016-12-10 04:00] VITALS: BP 88/57
[2016-12-10 04:11] LABS: CALCIUM 7.8 mg/dL (8.5-10.1); CARBON DIOXIDE 27.5 mmol/L (21.0-32.0); CHLORIDE - SERUM 104 mmol/L (98-107); CREATININE - SERUM 0.8 mg/dL (0.6-1.3); SODIUM 138 mmol/L (136-145); eGFR NON AFRICAN AMERICAN 79 mL/min (90-120)
[2016-12-10 04:33] LABS: CALC OSMOLALITY 277 mosm/kg (275-300); GLUCOSE 125 mg/dL (74-106); POTASSIUM - SERUM 3.5 mmol/L (3.5-5.1); UREA NITROGEN 14 mg/dL (7-18)
--- NOTE | 2016-12-10 08:00 | NUR ---
ASSESSMENT PER FLOW SHEET.PT WITHOUT DISTRESS.DRESSING LEFT KNEE CDI.PT INSTRUCTED TO CALL FOR NEEDS.FALL PREVENTION IN PLACE WITH JERRICA MAT ON AND FUNCTIONING.CALL LIGHT IN REACH.
[2016-12-10 08:38] VITALS: BP 113/68
--- NOTE | 2016-12-10 12:00 | NUR ---
PT REMAINS WITHOUT NEEDS,WITHOUT DISTRESS.PAIN CONTROLLED WITH TECHNICAL MGR.MONITOR.POEY MAT ON AND FUNCTIONING.
[2016-12-10 12:13] VITALS: BP 86/54
--- NOTE | 2016-12-10 16:25 | NUR ---
RESTING WITHOUT SIGNS OF DISTRESS.PAIN CONTROLLED WITH HAND SPINNER.FALL PREVENTION STILL IN PLACE WITH JERRICA MAT ON AND FUNCTIONING.MONITOR
--- NOTE | 2016-12-10 17:23 | NUR ---
REMAINS WITHOUT NEEDS.EATING DINNER.PT WITHOUT CHANGE.CONT PLAN OF CARE
[2016-12-10 18:49] VITALS: BP 96/64
[2016-12-10 20:00] VITALS: BP 111/63
[2016-12-11] VITALS: BP 113/52
--- NOTE | 2016-12-11 03:13 | NUR ---
PT IS SLEEPING SOUNDLY WITH LIGHT SNORING. HER LEFT KNEE IS CARRINGTON WRAPPED AND SHE HAS IT IN A POSITION OF COMFORT. THE BED IS LOW, RAILS UP X'S 2 WITH THE CALL LIGHT AT HAND. NO DISTRESS NOTED.
[2016-12-11 04:00] VITALS: BP 129/69
--- NOTE | 2016-12-11 07:45 | NUR ---
ASSESSMENT PER FLOW SHEET.PT WITHOUT DISTRESS. DRESSING TO LEFT KNEE CDI,IMMOBILIZER IN PLACE.MONITOR FOR NEEDS
[2016-12-11 07:50] VITALS: BP 95/50
--- NOTE | 2016-12-11 09:15 | NUR ---
UP TO BATHROOM.AM MEDS ORDERED PER MAR
[2016-12-11 12:32] VITALS: BP 111/58
--- NOTE | 2016-12-11 14:29 | NUR ---
RESTING WITHOUT DISTRESS.NEEDS MET.
[2016-12-11 15:48] VITALS: BP 104/55
--- NOTE | 2016-12-11 17:22 | NUR ---
REMAINS UNCHANGED FROM INITIAL SHIFT ASSESSMENT.NEEDS MET AT PRESENT.CONT PLAN OF CARE
[2016-12-11 20:00] VITALS: BP 124/72
[2016-12-12] VITALS: BP 134/80
[2016-12-12 04:00] VITALS: BP 122/71
--- NOTE | 2016-12-12 07:35 | NUR ---
ASSESSMENT PER FLOW SHEET.PT WIHTOUT DISTRESS.LEFT KNEE DRESSING CDI.DENIES NEEDS.CALL LIGHT IN REACH
[2016-12-12 08:27] LABS: MCHC 32.1 g/dL (31.0-37.0); MCV 93.3 fL (80.0-100.0); MEAN PLATELET VOLUME 8.4 fL (7.4-10.4); RDW 13.9 % (11.5-14.5); WBC 8.6 10x3/uL (4.8-10.8)
[2016-12-12 08:33] VITALS: BP 117/64
[2016-12-12 08:54] LABS: CALC OSMOLALITY 275 mosm/kg (275-300); CALCIUM 8.3 mg/dL (8.5-10.1); CARBON DIOXIDE 27.9 mmol/L (21.0-32.0); CHLORIDE - SERUM 105 mmol/L (98-107); CREATININE - SERUM 0.8 mg/dL (0.6-1.3); GLUCOSE 97 mg/dL (74-106); POTASSIUM - SERUM 4.1 mmol/L (3.5-5.1); SODIUM 138 mmol/L (136-145); UREA NITROGEN 12 mg/dL (7-18); eGFR NON AFRICAN AMERICAN 79 mL/min (90-120)
--- NOTE | 2016-12-12 09:21 | OP ---
PATIENT NAME: SWAPNA CAR MEDICAL RECORD: [id number] :64 LOCATION:D.[id number] ADMISSION DATE:12/05/16 SURGEON: PARKER JAQUEZ MD DATE OF OPERATION: 12/08/2016 DATE OF OPERATION: 12/08/2016. PREOPERATIVE DIAGNOSIS: Infected left total knee. POSTOPERATIVE DIAGNOSIS: Infected left total knee. PROCEDURE: 1. Removal of infected left total knee. 2. Placement of antibiotic cement spacer. SURGEON: Parker Jaquez MD. ANESTHESIA: General. INTRAOPERATIVE COMPLICATIONS: None. SUMMARY OF PATHOLOGIC FINDINGS: Unfortunately, this patient had a complete breakdown of her quad mechanism, vastus medialis had substantial retraction with infection. The entire knee was filled with infectious necrotic tissue, cultures were taken. OPERATIVE SUMMARY IN DETAIL: After obtaining the appropriate preoperative orthopedic surgery consent as well as anesthetic consultation, evaluation and clearance, the patient was brought to the operating room and placed on operating table in supine position. After general laryngeal mask was administered, tourniquet was placed about the proximal aspect of left lower extremity. Left lower extremity was prepped and draped in routine sterile fashion. Please note that preoperatively, this patient had a large hole medial to the midline incision made by the previous surgeon where a substantial amount of pus continued to exude. Again, after the tourniquet was inflated the previous midline incision was utilized again taken down for a paramedian arthrotomy. Unfortunately, the vastus lateralis had already and was somewhat partially necrotic. The entire medial space was inflammatory infected tissue. Serial and sequential removal was done with both scalpel, rongeur, as well as curettage. Having removed all this, the knee was then flexed up and the polyethylene was removed. This was followed by removal of the distal femur. The distal femur was not overtly loose. However, using the Mercedes revision set, the distal femur was removed with minimal bone loss. All nonviable appearing tissue was removed. Attention was then turned to the tibia. A saw was used to remove the tibia which came out again without substantial bone loss. All bone cement was removed as well. After all necrotic appearing tissue was removed, copious pulsatile lavage irrigation was then followed by removal of the patella and all components along with the cement backside of the patella. Having completed this, a size 3 femur was coated in tobramycin cement and a size 4 tibial baseplate was likewise coated and used as an antibiotic cement spacer. This fitted in the knee nicely. The wound was then irrigated further and then careful closure was done for reapproximation of what was residual of the vastus lateralis. This was done with #2 Ethibond followed by #1 Vicryl. The skin deficit or hole in the knee was closed with a combination of 2-0 Vicryl as well as 0 Vicryl. The knee was closed, sterile dressings were applied. Tourniquet OPERATIVE REPORT [id number] SWAPNA CAR was deflated. The patient was awakened, taken to recovery in stable condition. All final needle and sponge counts were correct. TRANSINT:[id number] Voice Confirmation ID: [id number] DOCUMENT ID: [id number] GISELE JASSO, PARKER GUTIERREZ at 0921 CC: [id number] DICTATION DATE: 12/08/161999 KILN DRAWER: 12/09/16 0240 ADM IN [place] [place] [address]
--- NOTE | 2016-12-12 12:00 | NUR ---
REMAINS WITHOUT NEEDS.CALL LIGHT IN REACH
[2016-12-12 12:41] VITALS: BP 115/53
[2016-12-12 16:15] VITALS: BP 118/65
--- NOTE | 2016-12-12 16:49 | NUR ---
REMAINS WITHOUT CHANGE FROM INITIAL SHIFT ASSESSMENT.CONT PLAN OF CARE
[2016-12-12 19:00] VITALS: BP 116/68
[2016-12-13] VITALS: BP 133/70
--- NOTE | 2016-12-13 03:12 | NUR ---
RESTING WITH EYES CLOSED, NO DISTRESS NOTED, FALL PRECAUTIONS IN PLACE, CL IN REACH
[2016-12-13 04:00] VITALS: BP 138/80
[2016-12-13 07:22] LABS: HEMATOCRIT 29.9 % (36.0-48.0); HEMOGLOBIN 9.9 g/dL (12-16); MCH 30.4 pg (26.0-34.0); MCHC 33.1 g/dL (31.0-37.0); MCV 91.7 fL (80.0-100.0); MEAN PLATELET VOLUME 8.4 fL (7.4-10.4); PLATELET COUNT 275 10x3/uL (130-400); RBC 3.26 10x6/uL (4.00-5.40); RDW 13.9 % (11.5-14.5); WBC 9.2 10x3/uL (4.8-10.8)
[2016-12-13 07:42] LABS: C-REACTIVE PROTEIN 2.8 mg/dL (0.0-0.9); CALC OSMOLALITY 277 mosm/kg (275-300); CALCIUM 8.7 mg/dL (8.5-10.1); CARBON DIOXIDE 28.9 mmol/L (21.0-32.0); CHLORIDE - SERUM 103 mmol/L (98-107); CREATININE - SERUM 0.8 mg/dL (0.6-1.3); GLUCOSE 102 mg/dL (74-106); POTASSIUM - SERUM 4.2 mmol/L (3.5-5.1); SODIUM 139 mmol/L (136-145); UREA NITROGEN 13 mg/dL (7-18); eGFR NON AFRICAN AMERICAN 79 mL/min (90-120)
[2016-12-13 08:30] LABS: ERYTHROCYTE SEDIMENTATION RATE 55 mm/hr (0-30)
[2016-12-13 08:49] VITALS: BP 129/77
[2016-12-13 12:41] VITALS: BP 134/77
--- NOTE | 2016-12-13 13:27 | NUR ---
DR ALAMO CALLED FOR TO GET A HALL ON DAPTOMYCIN 500MG DAILY THROUGH 01/18/17. I SPOKE WITH DANIELLE AT [facility] TO GET A HALL. FACESHEET FAXED TO HER SHE WILL CALL ME BACK
--- NOTE | 2016-12-13 14:17 | NUR ---
NUTRITION MONITORING & EVAL CHART REVIEWED. PT CONTINUES GOOD PO INTAKE REG DIET. RD FOLLOWING
--- NOTE | 2016-12-13 14:59 | NUR ---
JOSE WITH [facility] CALL BACK AND STATED THAT THEY COULD NOT TAKE THE PATIENT ON. PATIENT AWARE AND SECOND CHOICE WAS [facility] . NEW REFERRAL SENT TO [facility] , SPOKE WITH ROSA
[2016-12-13 16:23] VITALS: BP 107/60
--- NOTE | 2016-12-13 20:00 | NUR ---
ASSESSMENT PER FLOWSHEET. IV PATENT LEFT AC PICC LINE SALINE LOCKED. SR UP X2 CALL LIGHT WITHIN REACH JERRICA MAT ON.DRESSING TO LEFT KNEE C/D/I WITH IMMOBILIZER ON.
--- NOTE | 2016-12-13 22:00 | NUR ---
MEDS PER MAR. UP TO BR VOIDS LEAKS URINE ON FLOOR.
[2016-12-13 23:11] VITALS: BP 120/60
[2016-12-14] VITALS: BP 118/62
--- NOTE | 2016-12-14 | NUR ---
AWAKE EATING ICE CREAM AND SODAS.
--- NOTE | 2016-12-14 03:00 | NUR ---
UP TO BR VOIDS LEAKED FROM BED TO BATHROOM.
--- NOTE | 2016-12-14 03:39 | NUR ---
EYES CLOSED RESPIRATIONS WITH EASE AND UNLABORED.
--- NOTE | 2016-12-14 07:25 | NUR ---
PATIENT RECEIVED ALERT IN LOW ARTHUR POSITION. RESPIRATIONS EVEN AND UNLABORED. SIDE RAILS UP X2. BED IN LOW POSITION. CALL LIGHT IN REACH. DENIES NEEDS. WILL CONTINUE TO MONITOR.
[2016-12-14 08:05] VITALS: BP 106/57
--- NOTE | 2016-12-14 08:42 | NUR ---
PATIENT ALERT IN HIGH ARTHUR POSITION. NO SIGNS OF DISTRESS NOTED. TOLERATED BREAKFAST WITHOUT DIFFICULTY. SCHEDULED MEDICATION ADMINISTERED. DRESSING TO LEFT PICC CHANGED USING STERILE TECHNIQUE AND CENTRAL LINE DRESSING KIT. OLD DRESSING REMOVED. NO REDNESS OR INFLAMMATION NOTED. SITE CLEANSED, NEW BIOPATCH AND TEGADERM APPLIED. SWAB CAPS IN PLACE. WELL TOLERATED. DENIES NEEDS. SIDE RAILS UP X2. BED IN LOW POSITION. CALL LIGHT IN REACH.
--- NOTE | 2016-12-14 08:45 | NUR ---
DRESSING TO LEFT KNEE CHANGED PER ORDER. OLD DRESSING REMOVED. YESSENIA AND SUTURE INTACT. SMALL AMOUNT OF SEROSANGUINOUS DRAIANGE NOTED COMING FROM ICISION. SITE CLEANSED WITH WOUND CLEANSER. AQUA ANGELIA AG PLACED OVER INCISION. KNEE IMMOBILIZER IN PLACE. DENIES NEEDS. SIDE RAILS UP X2. BED IN LOW POSITION. CALL LIGHT IN REACH.
--- NOTE | 2016-12-14 10:57 | NUR ---
PATIENT ALERT IN BED. NO SIGNS OF DISTRESS NOTED. SCHEDULED MEDICATION ADMINISTERED. SIDE RAILS UP X2. BED IN LOW POSITION. CALL LIGHT IN REACH.
[2016-12-14 11:36] VITALS: BP 112/60
[2016-12-14] MEDS ORDERED: OXYCODONE HCL5 MG PO (12:42)
--- NOTE | 2016-12-14 13:31 | NUR ---
Patient being discharged home today. Patient is set up for home health with iv abx. The ABX will be delivered today at sometime from [facility] ([facility]- [phone]). I spoke with Radha with [facility] ([phone]) explained to her that the patients abx will be due 12:00 tomorrow 12/15/16 & she stated that everything is set up.
--- NOTE | 2016-12-14 13:35 | NUR ---
REPORTED BY PHYSICAL THERAPIST STUDENT THAT PATIENT WAS IN ROOM SMOKING. INSTRUCTED PATIENT THAT SHE WAS NOT ABLE TO SMOKE IN THE FACILITY DUE TO SAFETY CONCERNS. SECURITY NOTIFIED
--- NOTE | 2016-12-14 13:40 | NUR ---
CM met with patient & I explained to her that abx will be delivered today & [facility] will be there tomorrow. Patient states understanding and denies any other CM needs
--- NOTE | 2016-12-14 14:00 | NUR ---
SECURITY HERE TO SPEAK WITH PATIENT REGARDING SMOKING IN ROOM
--- NOTE | 2016-12-14 15:15 | NUR ---
D/C TEACHING PROVIDED BY MARY MARTINEZ. HOME MEDS GIVEN BACK TO PATIENT FROM [facility]
--- NOTE | 2016-12-14 15:20 | NUR ---
PATIENT D/C HOME WITH FAMILY. TRANSFERRED DOWNSTAIRS VIA WHEELCHAIR WITH FAMILY.
== END 2016-12-14 15:24 | disposition home health service (06) | DRG 464 ==
LOC: D.MS 11:43
PROVIDERS: Student in an Organized Health Care Education/Training Program; ADMIT Orthopaedic Surgery
PROC: 02HV33Z Insertion of Infusion Device into Superior Vena Cava, Percutaneous Approach (ICD-10-PCS; 2016-12-06)
PROC: B548ZZA Ultrasonography of Superior Vena Cava, Guidance (ICD-10-PCS; 2016-12-06)
PROC: 0SPD0JZ Removal of Synthetic Substitute from Left Knee Joint, Open Approach (ICD-10-PCS; principal; 2016-12-08 16:30)
PROC: 0SHD08Z Insertion of Spacer into Left Knee Joint, Open Approach (ICD-10-PCS; 2016-12-08 16:30)
DX: T84.53XA Infection and inflammatory reaction due to internal right knee prosthesis, initial encounter (principal); N17.9 Acute kidney failure, unspecified; D62 Acute posthemorrhagic anemia; T42.4X1A Poisoning by benzodiazepines, accidental (unintentional), initial encounter; F41.9 Anxiety disorder, unspecified

== ENCOUNTER → 2016-12-26 19:40 | Outpatient (CLI) | payer MEDICAID ==
[2016-12-05 13:31] VITALS: BMI 33.5
[2016-12-26 20:12] LABS: BASOPHILS 0.5 % (0-2); EOSINOPHILS 1.5 % (0-7); HEMATOCRIT 38.3 % (36.0-48.0); HEMOGLOBIN 12.3 g/dL (12-16); IMMATURE GRANULOCYTES 0.3 % (0-5); MCH 29.7 pg (26.0-34.0); MCHC 32.1 g/dL (31.0-37.0); MCV 92.5 fL (80.0-100.0); MEAN PLATELET VOLUME 9.2 fL (7.4-10.4); MONOCYTES 5.7 % (2-11); RBC 4.14 10x6/uL (4.00-5.40); RDW 14.4 % (11.5-14.5); WBC 7.5 10x3/uL (4.8-10.8)
[2016-12-26 20:13] LABS: PLATELET COUNT 448 10x3/uL (130-400)
[2016-12-26 20:38] LABS: UREA NITROGEN 22 mg/dL (7-18)
[2016-12-26 20:40] LABS: C-REACTIVE PROTEIN < 0.2 mg/dL (0.0-0.9); CREATINE KINASE 865 UL (21-215)
[2016-12-26 21:29] LABS: CKMB 15.3 U/L (0.0-3.6)
[2016-12-26 21:42] LABS: ERYTHROCYTE SEDIMENTATION RATE 36 mm/hr (0-30)
== END | disposition home or self-care (01) ==
LOC: D.LABREF 19:40
PROVIDERS: Orthopaedic Surgery
DX: T84.54XA Infection and inflammatory reaction due to internal left knee prosthesis, initial encounter (principal)

== ENCOUNTER → 2017-01-09 11:52 | Outpatient (CLI) | payer MEDICAID ==
[2016-12-05 13:31] VITALS: BMI 33.5
[2017-01-09 13:52] LABS: BASOPHILS 0.5 % (0-2); EOSINOPHILS 3.1 % (0-7); HEMOGLOBIN 12.9 g/dL (12-16); IMMATURE GRANULOCYTES 0.1 % (0-5); LYMPHOCYTES 26.5 % (15-50); MCH 29.6 pg (26.0-34.0); MCHC 32.3 g/dL (31.0-37.0); MCV 91.7 fL (80.0-100.0); MEAN PLATELET VOLUME 9.3 fL (7.4-10.4); MONOCYTES 7.1 % (2-11); NEUTROPHILS 62.7 % (40-80); PLATELET COUNT 367 10x3/uL (130-400); RBC 4.36 10x6/uL (4.00-5.40); RDW 13.3 % (11.5-14.5); WBC 7.4 10x3/uL (4.8-10.8)
[2017-01-09 14:07] LABS: ALBUMIN 3.5 g/dL (3.4-5.0); ALKALINE PHOSPHATASE 93 U/L (46-116); ALT (SGPT) 33 U/L (10-68); BILIRUBIN - TOTAL 0.26 mg/dL (0.2-1.3); CALC OSMOLALITY 277 mosm/kg (275-300); CALCIUM 9.1 mg/dL (8.5-10.1); CARBON DIOXIDE 25.3 mmol/L (21.0-32.0); CHLORIDE - SERUM 102 mmol/L (98-107); CREATINE KINASE 176 UL (21-215); GLUCOSE 95 mg/dL (74-106); PROTEIN - SERUM 7.8 g/dL (6.4-8.2); SODIUM 138 mmol/L (136-145); UREA NITROGEN 18 mg/dL (7-18); eGFR NON AFRICAN AMERICAN 61 mL/min (90-120)
[2017-01-09 14:11] LABS: C-REACTIVE PROTEIN < 0.2 mg/dL (0.0-0.9)
[2017-01-09 14:56] LABS: ERYTHROCYTE SEDIMENTATION RATE 32 mm/hr (0-30)
== END | disposition home or self-care (01) ==
LOC: D.LABREF 11:52
PROVIDERS: Student in an Organized Health Care Education/Training Program
DX: T84.50XD Infection and inflammatory reaction due to unspecified internal joint prosthesis, subsequent encounter (principal); Z51.81 Encounter for therapeutic drug level monitoring; Z79.2 Long term (current) use of antibiotics

== ENCOUNTER 2017-01-12 10:58 | Inpatient (IN) | payer MEDICAID ==
[~2017-01-12] VITALS: Ht 172.7 cm; Wt 91.8 kg
[2017-01-12 13:09] LABS: BASOPHILS 0.3 % (0-2); EOSINOPHILS 0.7 % (0-7); HEMATOCRIT 40.1 % (36.0-48.0); HEMOGLOBIN 13.2 g/dL (12-16); IMMATURE GRANULOCYTES 0.1 % (0-5); LYMPHOCYTES 23.5 % (15-50); MCH 29.1 pg (26.0-34.0); MCHC 32.9 g/dL (31.0-37.0); MCV 88.3 fL (80.0-100.0); MONOCYTES 6.6 % (2-11); NEUTROPHILS 68.8 % (40-80); RBC 4.54 10x6/uL (4.00-5.40); RDW 13.5 % (11.5-14.5); WBC 6.7 10x3/uL (4.8-10.8)
[2017-01-12 13:15] LABS: ANION GAP 14.4 mmol/L (8-16); CALCIUM 9.4 mg/dL (8.5-10.1); CARBON DIOXIDE 25.6 mmol/L (21.0-32.0); CREATININE - SERUM 0.9 mg/dL (0.6-1.3)
[2017-01-12 13:16] LABS: PLATELET COUNT 219 10x3/uL (130-400)
[2017-01-12 15:39] VITALS: BMI 30.7
--- NOTE | 2017-01-12 19:15 | NUR ---
VERBALY ORDERED FOR 1MG OF VANCOMYCIN IN 250MGL OF NS TO BE STARTED IN RECOVERY.
--- NOTE | 2017-01-12 19:24 | NUR ---
VANCOMYCIN 1MG IN 250ML OF NS STARTED AT THIS TIME TO INFUSE OVER 1 HOUR.
[2017-01-12 20:01] VITALS: BP 148/82
[2017-01-12 20:18] VITALS: BP 147/75
--- NOTE | 2017-01-12 20:28 | NUR ---
PATIENT WAS QUICK STARTED AND WENT OVER ADMISSION HISTORY. PATIENT URINATED IN BEDPAN WITHOUT DIFFICULTY, VSS WITH HTN NOTED. PATIENT GIVEN A SANDWHICH TRAY AND YAKUTAT SODA. REPORTS PAIN 7/10 TO LEFT KNEE. WOUND VAC IN PLACE. PEDIAL PULSE IN LEFT FOOD INTACT.
[2017-01-12 21:45] VITALS: BP 109/58
[2017-01-12 23:46] VITALS: Ht 172.7 cm; Wt 91.8 kg
[2017-01-13] VITALS: BP 113/71
--- NOTE | 2017-01-13 00:33 | NUR ---
PATIENT COMPLAINS OF A BURING 8 OUT OF 10 PAIN TO HER LEFT KNEE. NORCO 10 GIVEN THIS TIME FOR PAIN CONTROL. TORADOL WAS INEFFECTIVE AND PERCOCET 10 WAS MODERATELY HELPFUL. PATIENT UNDERSTANDS PAIN CONTROL IS NOT TO GET RID OF ALL PAIN, ITS TO GET IT TO A MANAGEABLE LEVEL.
--- NOTE | 2017-01-13 01:10 | NUR ---
KIMBERLY 10 WORK MEDIOCORE AT BEST FOR DROPPING PAIN LEVEL
[2017-01-13 04:00] VITALS: BP 130/67
[2017-01-13 05:04] LABS: HEMATOCRIT 34.7 % (36.0-48.0); HEMOGLOBIN 11.3 g/dL (12-16); MCHC 32.6 g/dL (31.0-37.0); RBC 3.9 10x6/uL (4.00-5.40); RDW 13.1 % (11.5-14.5)
[2017-01-13 05:09] LABS: WBC 4.9 10x3/uL (4.8-10.8)
--- NOTE | 2017-01-13 07:19 | NUR ---
AWAKE AND ALERT AT THIS TIME. PRN PAIN MEDICATION ADMINISTERED BY MARY DINERO FOR PAIN 11/09. WOUND VAC PATENT TO LEFT KNEE. LEFT UPPER ARM PICC LINE PATENT WITH OCCLUSIVE DRESSING AND BIOPATCH IN PLACE. SWAB CAPS IN USE. ASSESSMENT PERFORMED PER FLOWSHEET. CALL LIGHT IN REACH, WILL CONTINUE WITH PLAN OF CARE.
[2017-01-13 08:16] VITALS: BP 133/77
[2017-01-13 12:45] VITALS: BP 148/84
--- NOTE | 2017-01-13 14:46 | NUR ---
Patient Name: SWAPNA CAR Admission Status: Elective Accout number: [id number] Admission Date: 01-12-2017 : 1960 Admission Diagnosis:INFECT/INFLM REACTION DUE TO INTERNAL LEFT KNEE PROSTH, Attending: RADHA Current LOS: 1 Anticipated DC Date: Planned Disposition: Primary Insurance: MEDICAID [place] Discharge Planning Comments: Wound Vac has been approved from [facility] when patient is ready for discharge. Fire Protection Equipment Technician: Neetu Mcghee
[2017-01-13 15:38] VITALS: BP 99/67
--- NOTE | 2017-01-13 17:00 | NUR ---
DRESSING TO LEFT UPPER ARM PICC OBSERVED AND DISCUSSED DRESSING WITH PT. SHE STATED THAT DRESSING WAS CHANGED LAST ON 01/09/17, IN DR ALAMO'S OFFICE. WILL CHANGE PICC LINE DRESSING USING STERILE TECNIQUE AFTER PT FINISHES DINNER.
--- NOTE | 2017-01-13 18:00 | NUR ---
DRESSING TO LEFT UPPER ARM PICC CHANGED USING STERILE TECNIQUE.
--- NOTE | 2017-01-13 19:39 | NUR ---
SLEEPING, BREATHING EVEN AND UNLABORED, CALL LIGHT IN REACH, BED LOWEST POSITION, WILL CONTINUE TO MONITOR
[2017-01-13 20:00] VITALS: BP 111/54
--- NOTE | 2017-01-13 20:00 | NUR ---
ASSESSED, FAMILY MEMBER AT THE BEDSIDE. HE WAS REQUESTING TO HAVE HIS DIET UP GRADED. ABD LARGE WITH STUART DRAIN AND DDRESSING RIGHT AT THE MIDDLE. THE BED IS LOW, RAILS UP X'S 2 WITH THE CALL LIGHT AT HAND.
--- NOTE | 2017-01-13 23:17 | NUR ---
PAIN AT A 8, PERCOCET GIVEN, DENIES OTHER NEEDS
[2017-01-14] VITALS: BP 124/66
--- NOTE | 2017-01-14 01:04 | NUR ---
ASSESSED, PT IS RESTING QUIET IN BED AND NO DISTRESS NOTED. REQUESTED ICE CREAM AND WHEN OK'ED WAS GIVEN TWO ICECREAM. THE BED IS LOW, RAILS UP X'S 3 WITH THE CALL LIGHT AT HAND.
--- NOTE | 2017-01-14 03:48 | NUR ---
SLEEPING, BREATHING EVEN UNLABORED, CALL LIGHT IN REACH, WILL CONTINUE TO MONITOR
[2017-01-14 04:00] VITALS: BP 113/77
[2017-01-14 04:53] LABS: HEMATOCRIT 32.5 % (36.0-48.0); HEMOGLOBIN 10.6 g/dL (12-16); MCH 29.3 pg (26.0-34.0); MCHC 32.6 g/dL (31.0-37.0); MCV 89.8 fL (80.0-100.0); MEAN PLATELET VOLUME 8.9 fL (7.4-10.4); RBC 3.62 10x6/uL (4.00-5.40); RDW 13.2 % (11.5-14.5)
[2017-01-14 05:09] LABS: WBC 7.7 10x3/uL (4.8-10.8)
--- NOTE | 2017-01-14 07:55 | NUR ---
ASSESSMENT COMPLETE. L PICC LINE PATENT. 1/2 NS INFUSING AT 100 CC/HR VIA PUMP. WOUNDVAC IN USE TO L KNEE.
[2017-01-14 08:23] VITALS: BP 116/71
[2017-01-14 12:01] VITALS: BP 116/68
--- NOTE | 2017-01-14 15:00 | NUR ---
VISITING WITH FRIENDS. DENIES ANY NEEDS AT PRESENT.
--- NOTE | 2017-01-14 17:56 | NUR ---
RESTING QUIETLY IN BED.
--- NOTE | 2017-01-14 19:45 | NUR ---
AWAKE, SLIGHTLY DROWSY. RATES PAIN LEVEL AT 6 ON NUMBER SCALE OF LEFT KNEE, DESCRIBED ACHING/THROBBING. ASSESSMENTS COMPLETED. ORIENTED TO CALL LIGHT FOR ANY NEEDS.
[2017-01-14 20:00] VITALS: BP 107/71
--- NOTE | 2017-01-14 21:00 | NUR ---
ADMIN SCHED MEDS AND PERCOCET PER REQUEST FOR C/O LEFT KNEE PAIN RATED AT 8 ON NUMBER SCALE.
[2017-01-15] VITALS: BP 104/70
--- NOTE | 2017-01-15 01:13 | NUR ---
ADMIN PERCOCET PER REQUEST FOR C/O KNEE PAIN LEVEL 8 ON NUMBER SCALE. REQUESTED SOME ICE CREAM. ROOM SMELLS STRONG OF SMOKE. DENIES SMOKING IN ROOM. EDUCATED ABOUT THE HAZARDS OF SMOKING AROUND MEDICAL EQUIPMENT AND OXYGEN. DENIES HAVING CIGARETTES IN ROOM.
[2017-01-15 04:00] VITALS: BP 111/63
[2017-01-15 05:45] LABS: ANION GAP 10.1 mmol/L (8-16); CALCIUM 7.9 mg/dL (8.5-10.1); CARBON DIOXIDE 26.9 mmol/L (21.0-32.0); CREATININE - SERUM 1.1 mg/dL (0.6-1.3)
--- NOTE | 2017-01-15 05:50 | NUR ---
AWAKE. RATES PAIN LEVEL AT 4 ON NUMBER SCALE OF LEFT KNEE.
[2017-01-15 06:20] LABS: ERYTHROCYTE SEDIMENTATION RATE 31 mm/hr (0-30)
--- NOTE | 2017-01-15 07:50 | NUR ---
ASSESSMENT COMPLETE. L PICC LINE PATENT. 1/2 NS INFUSING AT 100 CC/HR VIA PUMP.WOUNDVAC IN USE TO L KNEE. DENIES ANY NEEDS AT THIS TIME.
[2017-01-15 08:24] VITALS: BP 108/66
--- NOTE | 2017-01-15 09:01 | NUR ---
PERCOCET WITH AM MEDS ADMINISTERED. CALL LIGHT IN REACH. REFUSES SCDs.
--- NOTE | 2017-01-15 11:15 | NUR ---
REQUESTING PERCOCET BUT TOO SOON FOR ADMINISTRATION..
--- NOTE | 2017-01-15 12:40 | NUR ---
JUAN AND LANETTE PO. CALL LIGHT IN REACH.
[2017-01-15 12:57] VITALS: BP 102/59
--- NOTE | 2017-01-15 14:25 | NUR ---
AFTERNOON MEDS ADMINISTERED PER LIZZIE NICHOLS.
[2017-01-15 15:58] VITALS: BP 118/69
--- NOTE | 2017-01-15 16:35 | NUR ---
RESTING WITH EYES CLOSED. RESP EVEN AND UNLABORED. CALL LIGHT IN REACH.
--- NOTE | 2017-01-15 17:07 | NUR ---
VANC AND PERCOCET ADMINISTERED ORDERED. CALL LIGHT IN REACH.
[2017-01-15 20:00] VITALS: BP 115/61
--- NOTE | 2017-01-15 21:33 | NUR ---
REC'D SITTING UP IN BED. ALERT AND ORIENTED X4. REPORTED PAIN 8/10. WILL ADMIN PM/AM MEDS PRESCRIBED. ROOM SMELLED OF STALE CIGS. CAME BACK 30 MINS LATER AND SMELLED OF FRESH CIGS SMOKE. WAS INSTRUCTED TO CALL SECURITY. SECURITY CAME UP AND TOLD PATIENT NO SMOKING IN ROOMS AND THAT SHE WOULD TAKE HER CIGS IF SHE CAUGHT HER SMOKING IN THE ROOM. EDUCATED HER ON THE DANGERS OF SMOKING INSIDE FACILITY. VERBALIZED UNDERSTANDING. WILL CONT TO MONITOR. BED LOW, LOCKED, CALL LIGHT IN REACH.
--- NOTE | 2017-01-15 22:26 | NUR ---
COLTON SAMUEL, CAME IN ROOM WITH AND EDUCATED ON THE RISKS AND CONSQUENCES OF SMOKING IN THE HOSPITAL. PATIENT GAVE CIGS TO US TO PLACE IN LOCK UP UNTIL SHE IS DISCHARGED. VERBALIZED UNDERSTANDING AND AGREED. CIGS ARE IN THE CASSETTE IN HER ROOM NUMBER WITH HER NAME ON THEM.
[2017-01-16] VITALS: BP 111/67
--- NOTE | 2017-01-16 03:34 | NUR ---
RESTING COMFORTABLY. NO DISTRESS NOTED. WILL CONT TO MONITOR. BED LOW, LOCKED, CALL LIGHT IN REACH.
--- NOTE | 2017-01-16 03:54 | NUR ---
EYES CLOSED RESPIRATIONS WITH EASE AND UNLABORED.
[2017-01-16 04:00] VITALS: BP 98/54
[2017-01-16 08:09] VITALS: BP 108/55
--- NOTE | 2017-01-16 08:30 | NUR ---
ASSESSMENT COMPLETE. L PICC LINE PATENT. 1/2 NS INFUSING AT 100 CC/HR VIA PUMP.NPO FOR SURGERY TODAY. WOUNDVAC IN USE TO L KNEE.
--- NOTE | 2017-01-16 12:00 | NUR ---
NO CHANGES NOTED AT PRESENT. CONTINUES TO AWAIT GOING TO SURGERY.
[2017-01-16 12:10] VITALS: BP 118/55
[2017-01-16 15:51] VITALS: BP 118/65
--- NOTE | 2017-01-16 16:30 | NUR ---
COMPLAINING OF HAVING MULTIPLE LOOSE STOOLS. LINDSAY ALICIA APN NOTIFIED. NEW ORDER RECIEVED FOR STOOL SPECIMEN FOR CDT. PATIENT NOTIFIED OF NEED FOR SPECIMEN AND CONTAINER PLACED IN TOILET.
--- NOTE | 2017-01-16 18:58 | NUR ---
CONTINUES TO AWAIT SURGERY.
--- NOTE | 2017-01-16 19:05 | NUR ---
OFF FLOOR TO OR VIA BED.
[2017-01-16 20:20] VITALS: BP 111/70
--- NOTE | 2017-01-16 20:29 | NUR ---
RECEIVED PATIENT FROM RECOVERY. PATIENT'S VITALS WNL. ASSISTED PATIENT ON AND OFF THE BEDPAN. PATIENT DENIES OTHER NEEDS AT THIS TIME. BED IN LOWEST POSITION AND CALL LIGHT WITHIN REACH.
[2017-01-17] VITALS (23 sets, daily range): BP systolic 101–139; BP diastolic 46–83
[2017-01-17 06:52] LABS: BASOPHILS 0.3 % (0-2); EOSINOPHILS 3.4 % (0-7); HEMATOCRIT 21.9 % (36.0-48.0); IMMATURE GRANULOCYTES 0.8 % (0-5); LYMPHOCYTES 31.4 % (15-50); MCH 29.6 pg (26.0-34.0); MCHC 32.4 g/dL (31.0-37.0); MCV 91.3 fL (80.0-100.0); MEAN PLATELET VOLUME 8.7 fL (7.4-10.4); MONOCYTES 6.9 % (2-11); NEUTROPHILS 57.2 % (40-80); PLATELET COUNT 250 10x3/uL (130-400); RDW 13.8 % (11.5-14.5); WBC 6.2 10x3/uL (4.8-10.8)
[2017-01-17 06:53] LABS: HEMOGLOBIN 7.1 g/dL (12-16)
[2017-01-17 06:57] LABS: ANION GAP 12.6 mmol/L (8-16); CALCIUM 7.7 mg/dL (8.5-10.1); CARBON DIOXIDE 23.9 mmol/L (21.0-32.0); POTASSIUM - SERUM 3.5 mmol/L (3.5-5.1)
--- NOTE | 2017-01-17 07:30 | NUR ---
AWAKE AND ALERT. ORIENTED X3. NO C/O AT THIS TIME. LUNGS ARE CLEAR BILATERALLY, NO COUGH NOTED. SKIN IS INTACT WITHOUT REDNESS EXCEPT INCISION TO LEFT KNEE WHICH HAS A WOUND VAC IN PLACE WITH SCANT SEROUS SANGUINESS DRAINAGE NOTED. LEFT UPPER ARM PICC PATENT WITHOUT REDNESS AT INSERTION SITE. REPORTS GOOD PAIN RELIEF WITH USE OF PERCOCET. GETS UP TO BR PER SELF. DENIES NEEDS.
--- NOTE | 2017-01-17 10:00 | NUR ---
RESTING QUIETLY IN ROOM. DENIES NEEDS.
--- NOTE | 2017-01-17 10:04 | NUR ---
Patient Name: SWAPNA CAR Admission Status: Elective Accout number: [id number] Admission Date: 01-12-2017 : 1960 Admission Diagnosis:INFECT/INFLM REACTION DUE TO INTERNAL LEFT KNEE PROSTH, Attending: RADHA Current LOS: 5 Anticipated DC Date: Planned Disposition: Home Primary Insurance: MEDICAID [place] Discharge Planning Comments: CM met with patient to assess discharge planning needs. Patient stated that nothing has changed in her living situation and that she still lives with her roommates. Aida Murillo (roommate) [phone] will be the one to discharge home when the time comes. Patient still has her PICC line in her left upper arm where she was getting IV home ABX from [facility] . CM called [facility] to let them know that the patient was in the hospital and Radha stated that they have discharged the Patient because she tested positive for drugs and they will not be responsible for her PICC line with she is doing drugs. Radha stated that was made aware. CM will make sure that she was aware. Patient will be discharged on a wound vac and it has already been approved. CM will continue to follow and assist as needed. PCP: Amanda Mahoney ( [facility]) Pharmacy: [facility] Aida Murillo (roommate)[phone] Equine Science Instructor: Neetu Mcghee * Is the patient Alert and Oriented? Yes 0 * How many steps to enter\exit or inside your home? 0 0 * PCP Amanda Mahoney ([facility]) 0 * Pharmacy [facility] 0 * Preadmission Environment Home with Family 0 * ADLs Independent 0 * Equipment Walker 0 * List name and contact numbers for known caregivers / representatives who currently or will assist patient after discharge: lives with Roommates 0 * Please name any agencies selected above. did have HH but was fired for + Drug screen 0 * Additional services required to return to the preadmission environment? Yes 0 * Can the patient safely return to the preadmission environment? No 0 * Has this patient been hospitalized within the prior 30 days at any hospital? Yes 0 Grand Total: 0
--- NOTE | 2017-01-17 12:15 | NUR ---
REQUESTED AND GIVNE ONE PERCOCET PO FOR C/O LEFT KNEE PAIN LEVEL 8. WILL MONITOR.
--- NOTE | 2017-01-17 12:25 | NUR ---
FIRST UNIT OF PRBC UP AT THIS TIME. VSS.
--- NOTE | 2017-01-17 12:40 | NUR ---
TRANSFUSION CONTINUES WITHOUT DIFFICULTY. VSS.
--- NOTE | 2017-01-17 15:00 | NUR ---
FIRST UNIT OF PRBC COMPLETED. NO SIGNS OF REACTION OR COMPLICATIONS. VSS.
--- NOTE | 2017-01-17 15:30 | NUR ---
SECOND UNIT PRBC TRANSFUSING. VSS.
--- NOTE | 2017-01-17 15:45 | NUR ---
TRANSFUSION CONTINUES WITHOUT COMPLACATIONS. VSS.
--- NOTE | 2017-01-17 17:30 | NUR ---
CLEAR LIQUID SUPPER TRAY SERVED IN ROOM. DENIES NEEDS.
--- NOTE | 2017-01-17 18:30 | NUR ---
TRANSFUSION COMPLETED WITHOUT SIGNS OF REACTIONS OR COMPLICATIONS. DENIES NEEDS. VSS. NO CHANGES NOTED.
--- NOTE | 2017-01-17 20:00 | NUR ---
PATIENT RESTING IN BED AND DENIES NEEDS AT THIS TIME. BED IN LOWEST POSITION AND CALL LIGHT WITHIN REACH. ENCOURAGED THE PATIENT TO CALL IF HE HAS NEEDS.
[2017-01-18] VITALS: BP 113/72
[2017-01-18 04:00] VITALS: BP 107/64
--- NOTE | 2017-01-18 06:01 | NUR ---
NOTIFIED BY MELVA IN THE LAB THAT THE PATIENT'S HCT LAB TO BE DRAWN ON 01/18 @ 0047 WAS CANCELLED
--- NOTE | 2017-01-18 07:01 | NUR ---
SPOKE WITH JULIETTE IN LAB TO CONFIRM SOMEONE WILL BE UP TO DRAW LABS
--- NOTE | 2017-01-18 07:15 | NUR ---
REPORT RECEIVED FROM DIRECTOR ONLINE MARKETING NURSE. CALL LIGHT IN REACH.
[2017-01-18 07:24] LABS: BASOPHILS 0.6 % (0-2); EOSINOPHILS 3.6 % (0-7); HEMATOCRIT 28.9 % (36.0-48.0); HEMOGLOBIN 9.4 g/dL (12-16); IMMATURE GRANULOCYTES 0.9 % (0-5); LYMPHOCYTES 34.3 % (15-50); MCH 29.9 pg (26.0-34.0); MCHC 32.5 g/dL (31.0-37.0); MEAN PLATELET VOLUME 8.8 fL (7.4-10.4); MONOCYTES 8.7 % (2-11); NEUTROPHILS 51.9 % (40-80); PLATELET COUNT 248 10x3/uL (130-400); RBC 3.14 10x6/uL (4.00-5.40); RDW 14.9 % (11.5-14.5); WBC 5.3 10x3/uL (4.8-10.8)
[2017-01-18 07:51] LABS: ALBUMIN 2.5 g/dL (3.4-5.0); ANION GAP 10.7 mmol/L (8-16); BILIRUBIN - TOTAL 0.34 mg/dL (0.2-1.3); CALCIUM 8.2 mg/dL (8.5-10.1); CARBON DIOXIDE 27.3 mmol/L (21.0-32.0); PROTEIN - SERUM 5.8 g/dL (6.4-8.2)
[2017-01-18 08:07] VITALS: BP 82/48
--- NOTE | 2017-01-18 09:54 | NUR ---
ASSESSMENT COMPLETED. PERCOCET PO WITH AM MEDS ADMINISTERED. OFFERED SCDs BUT REFUSED. PREOP MED ADMINISTERED. CALL LIGHT IN REACH. WILL CONTINUE WITH PLAN OF CARE.
--- NOTE | 2017-01-18 10:25 | NUR ---
MAGNO IVPB PER ORDER. CALL LIGHT IN REACH.
--- NOTE | 2017-01-18 11:37 | NUR ---
TO GI LAB VIA BED.
--- NOTE | 2017-01-18 12:52 | NUR ---
LYING IN BED,WITHOUT DISTRESS.CALL LIGHT IN REACH
--- NOTE | 2017-01-18 13:40 | NUR ---
DENIES NEEDS AT THIS TIME. CALL LIGHT IN REACH.
--- NOTE | 2017-01-18 15:04 | NUR ---
NUTRITION MONITORING & EVAL CHART REVIEWED. USING AVAILABLE INFORMATION PT CONTINUES TO BE ASSESSED AT LOW NUTRITIONAL RISK. RD FOLLOWING
--- NOTE | 2017-01-18 15:37 | NUR ---
AFTERNOON MEDS ADMINISTERED. NORCO GIVEN TO PATIENT BUT THEN SHE SAID SHE WANTED PERCOCET SO I WASTED IT WITH MARY COELLO, AND GAVE PATIENT PERCOCET. CALL LIGHT IN REACH.
[2017-01-18 16:14] VITALS: BP 94/53
--- NOTE | 2017-01-18 17:55 | NUR ---
REGULAR TRAY IN ROOM. PATIENT IS TOLERATING WELL AT THIS TIME.
--- NOTE | 2017-01-18 18:45 | NUR ---
NO CHANGES IN INITIAL ASSESSMENT. CALL LIGHT IN REACH. WILL CONTINUE WITH PLAN OF CARE.
[2017-01-18 20:00] VITALS: BP 108/57
--- NOTE | 2017-01-18 20:20 | NUR ---
IN HALLS AT THIS TIME IN . NO DISTRESS NOTED.
--- NOTE | 2017-01-18 22:11 | NUR ---
PM MEDS ADMINISTERED PER ORDER. PICC LINE DRSG CHANGED USING STERILE TECHNIQUE PER HOSPITAL POLICY. CALL LIGHT IN REACH.
--- NOTE | 2017-01-18 22:31 | NUR ---
PATIENT WAS LYING ON IV TUBING AND PULLED PICC LINE GROUP HOME OUT. IV SITED TO RIGHT FOREARM WITH 22 GA X1 STICK. WILL CALL M[employer]WRIGHT APPRENTICE TO PULL PICC LINE. CALL LIGHT IN REACH.
--- NOTE | 2017-01-18 23:15 | NUR ---
REPORT RECIEVED ASSUMED CARE. PATIENT IN BED WITH IV INTACT. PICC LINE TO BE REMOVED BY CORNELIUS HI DUE TO PICC FALLING OUT. PATIENT STATED SHE DIDNT KNOW HOW IT GOT PULLED. NO COMPLAINTS AT THIS TIME. REMINDED NPO AFTER MN. VERBALIZED UNDERSTANDING. CALL LIGHT WITHIN REACH.
--- NOTE | 2017-01-18 23:50 | NUR ---
REPORT GIVEN TO LIZZIE TOMLINSON.
[2017-01-19] VITALS (7 sets, daily range): BP systolic 100–138; BP diastolic 62–83
--- NOTE | 2017-01-19 00:46 | NUR ---
PT HAD ACCIDENTLY PULLED PICC LINE OUT TO TH 35CM TUNG. PICC PULLED PRESSURE HELD, ANTIBIOTIC OINTMENT APPLIED, WITH 2X2 AND TEGADERM DRESSING.
--- NOTE | 2017-01-19 01:56 | NUR ---
PATIENT IN BED WITH EYES CLOSED RESTING QUIETLY QUIETLY AT THIS TIME. IV INTACT. CALL LIGHT WITHIN REACH. NPO. CONSENTS SIGNED EARLIER.
--- NOTE | 2017-01-19 02:24 | NUR ---
PATIENT UP TO BR. PAIN PILL GIVEN WITH SIP OF WATER. PATIENT BACK TO BED. CALL LIGHT WITHIN REACH.
[2017-01-19 05:51] LABS: BASOPHILS 0.4 % (0-2); EOSINOPHILS 4.2 % (0-7); HEMATOCRIT 28.1 % (36.0-48.0); IMMATURE GRANULOCYTES 0.6 % (0-5); LYMPHOCYTES 40.4 % (15-50); MCH 29.9 pg (26.0-34.0); MCV 93.4 fL (80.0-100.0); MONOCYTES 9.3 % (2-11); NEUTROPHILS 45.1 % (40-80); PLATELET COUNT 268 10x3/uL (130-400); RBC 3.01 10x6/uL (4.00-5.40); RDW 15.1 % (11.5-14.5); WBC 5.1 10x3/uL (4.8-10.8)
[2017-01-19 06:14] LABS: ALBUMIN 2.4 g/dL (3.4-5.0); ANION GAP 12.3 mmol/L (8-16); BILIRUBIN - TOTAL 0.2 mg/dL (0.2-1.3); CALCIUM 8.3 mg/dL (8.5-10.1); CARBON DIOXIDE 24.2 mmol/L (21.0-32.0); POTASSIUM - SERUM 3.5 mmol/L (3.5-5.1); PROTEIN - SERUM 5.8 g/dL (6.4-8.2)
--- NOTE | 2017-01-19 07:35 | NUR ---
PATIENT UNHOOKED OWN IV. UP IN WHEELCHAIR. STATES SHE IS GOING FOR A STROLL.
--- NOTE | 2017-01-19 09:15 | NUR ---
ASSESSSMENT COMPLETE. IV TO R FA PATENT. NPO FOR SURGERY TODAY. WOUNDVAC IN USE TO L KNEE. DENIES ANY NEEDS AT PRESENT.
--- NOTE | 2017-01-19 09:29 | NUR ---
AM MEDS ADMINISTERED. CALL LIGHT IN REACHL. PERCOCET PO.
--- NOTE | 2017-01-19 10:50 | NUR ---
PRBC INFUSION STARTED AT 100 CC/HR VIA PUMP. VSS.
--- NOTE | 2017-01-19 11:23 | NUR ---
OFF FLOOR TO OR VIA BED.
--- NOTE | 2017-01-19 13:13 | OP ---
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 PROCEDURES: 1. Excisional debridement to include skin, subcutaneous tissue, portions of fat, fascia, muscle and bone. 2. Application of a wound VAC. SURGEON: Parker Jaquez MD. ANESTHESIA: General. INTRAOPERATIVE COMPLICATIONS: None. SUMMARY OF PATHOLOGIC FINDINGS: Unfortunately, this wound opens up all the way to the cement spacer. It is very ominous for this patient. OPERATIVE SUMMARY IN DETAIL: After obtaining the appropriate preoperative orthopedic surgery consent as well as anesthetic consultation, evaluation and clearance, the patient was brought to the operating room and placed on the operating table in supine position. After general laryngeal mask was administered, tourniquet was placed about the proximal aspect of the left lower extremity though was not used during this case. Left lower extremity was then prepped and draped in routine sterile fashion. ____ was not used during this case. Copious pulsatile lavage irrigation was followed by scalpel and rongeur as well as curettage debridement of portions of the cement spacers well as well as portions of bone, muscle that appeared to be nonviable as well as skin and fascia. After again several liters of fluid were irrigated through the knee, wound VAC was placed, measurements listed in the chart, good suction seal was applied at 125 mm of continuous medium intensity. The patient was awakened, taken to recovery in stable condition. All final needle and sponge counts were correct. TRANSINT:[id number] Voice Confirmation ID: [id number] DOCUMENT ID: [id number] OPERATIVE REPORT [id number] SWAPNA CAR MD, PARKER GUTIERREZ at 1313 CC: [id number] DICTATION DATE: 01/13/17 1040 COMPUGRAPH OPERATOR: 01/18/17 2351 ADM IN [facility] [address] [place] [address]
--- NOTE | 2017-01-19 14:45 | NUR ---
RETURNED TO ROOM FROM RECOVERY ROOM. VSS. CARRINGTON WRAP DRESSING INTACT TO L KNEE WITH BREAKTHROUGH BLEEDING NOTED TO POSTERIOR KNEE.
--- NOTE | 2017-01-19 17:30 | NUR ---
OUTER DRESSING TO L KNEE CHANGED. YESSENIA INTACT TO INCISION. INCISION COVERED WITH 4X4'S, ABD PAD, AND CARRINGTON WRAP.
--- NOTE | 2017-01-19 19:23 | PRO ---
PATIENT:SWAPNA CAR MEDICAL RECORD: [id number] : 64 LOCATION:D.MS [id number] ADMISSION DATE: 01/12/17 PROCEDURE PERFORMED BY: TAIWO MARMOLEJO MD PROCEDURE DATE: 01/12/17 DATE OF PROCEDURE: 01/16/2017 LOKIE DRIVER: Taiwo Marmolejo MD PROCEDURE: EGD with biopsy. INDICATION: The patient is a 56-year-old white female who is basically admitted with an infected right knee replacement. During hospitalizations, she has developed acute melena with a drop in her hematocrit from the mid 30s down to the low 20s. She has never had an upper endoscopy and has no history of peptic ulcer disease. She denies any abdominal pain. She has been on Naprosyn/Aleve at home, however. She does have a history of colon polyps per colonoscopy about a year and a half ago. She is now for EGD. PREMEDICATION: Taper anesthesia. INSTRUMENT: Olympus video gastroscope. FINDINGS: The endoscope was passed through the oropharynx to the second portion of the duodenum without difficulty. The esophagus, stomach and duodenum were entered. The esophagus and duodenum were normal. The stomach was remarkable for mild to moderate erosive antral gastritis, almost certainly due to NSAIDs, as well as 3 definite ulcerations ranging from 1 to 1.5 cm in size. Two of these from angularis and one was in the mid antrum on the greater curvature. None was actively bleeding. I have not seen any vessel present to try to cauterize. The patient did take biopsies from throughout the stomach to rule out H. pylori by means of histology. The patient tolerated the procedure well without any immediate complication. IMPRESSION: 1. Three small to moderate sized gastric ulcers in the antrum/angularis area which is almost certainly the cause of a recent gastrointestinal bleed. 2. Mild to moderate erosive antral gastritis, almost certainly NSAID induced. 3. Otherwise, normal esophagogastroduodenoscopy. RECOMMENDATIONS: 1. Obviously avoid all aspirin, NSAIDs, possibly indefinitely. 2. Full liquid diet today and advance as tolerated. 3. Continue Protonix drip for another day, and probably can switch to Protonix 40 mg p.o. b.i.d. and I would recommend her to take for a month, then p.o. q.a.m. to take indefinitely. 4. Follow up gastric biopsies to rule out Helicobacter pylori. 5. Continue holding all of her blood thinners, i.e., her Eliquis, for about 5 more days. TRANSINT:[id number] Voice Confirmation ID: [id number] DOCUMENT ID: [id number] PROCEDURE NOTE [id number] SWAPNA CAR JOHN MD at 1923 CC: JAYCEE BOSTON DO and PARKER JAQUEZ MD MATT [id number] DICTATION DATE: 01/18/17 1214 WASHER ENGINEER: 01/19/17 0157 ADM IN [facility] [address] [place] [address]
--- NOTE | 2017-01-19 19:23 | CN ---
PATIENT NAME:SWAPNA CAR MEDICAL RECORD: [id number] : 64 LOCATION:D.MS Isabel ADMIT DATE: 01/12/17 ACCOUNT: [id number] CONSULTING PHYSICIAN: TAIWO JIMENEZ MD REFERRING PHYSICIAN: PARKER JAQUEZ MD DATE OF CONSULTATION: 01/17/2017 Gastroenterology Consultation REFERRING PHYSICIAN: Lex Lezama DO. HISTORY OF PRESENT ILLNESS: The patient is a 56-year-old white female known to me with history of colon polyps, diagnosed about a year and a half ago and colonoscopy, who basically was admitted because of an infected right knee replacement done in July 2016. I was asked to see the patient because of a couple days of her passing melena, drop in her hematocrit from the mid-30s to the low 20s with a rise in her BUN. She denies any abdominal pain, has no past history of peptic ulcer disease. She has no history of upper endoscopy in the past. She did have a colonoscopy in July 2015, which revealed 8 small to moderate sized polyps which were removed, but otherwise unremarkable. She has been on Eliquis for sometime and has also been taking some Aleve periodically. Her hematocrit now is 21 with a BUN of 38. ALLERGIES: CODEINE AND DARVOCET. PAST MEDICAL HISTORY: As above. She has a history of colon polyps as well. Remarkable for seizures, thyroid disease, hypertension, depression, and anxiety. PAST SURGICAL HISTORY: Remarkable for her right knee replacement, hysterectomy, wrist surgery and right clavicle surgery. SOCIAL HISTORY: The patient is a longtime smoker. She has used cocaine in the past. FAMILY HISTORY: Negative for GI disease. REVIEW OF SYSTEMS: Noncontributory other than in HPI. CURRENT MEDICATIONS: Include Protonix drip which was just started; Zosyn; IV vancomycin; Remeron; Neurontin; Celexa; Xanax; Zestril; Norvasc; nicotine patch; Colace; oxycodone; hydrocodone; Valium and her Eliquis was just put on hold. PHYSICAL EXAMINATION: GENERAL: Reveals a somewhat obese, middle-aged white female in no acute distress. VITAL SIGNS: Stable. She is afebrile. CHEST: Clear. HEART: Regular rate and rhythm. ABDOMEN: Soft, nontender. EXTREMITIES: No edema. LABORATORY DATA: Reveals normal electrolytes, BUN is 23 this morning, creatinine 1, hematocrit 21.9, again it was in the mid 30s a few days ago. CONSULT REPORT [id number] SWAPNA CAR IMPRESSION: 1. New onset of melena/probable upper gastrointestinal bleed of unclear etiology, but most likely due to peptic ulcer disease, stemming from Aleve and Eliquis use. 2. Status post recent right knee replacement with subsequent infection and take down. She apparently is scheduled for a spacer placement in a couple days by Dr. Jaquez. RECOMMENDATION: 1. Transfuse to hematocrit around 28-30. 2. Hold Eliquis. 3. Protonix drip has been ordered. 4. EGD tomorrow. TRANSINT:[id number] Voice Confirmation ID: [id number] DOCUMENT ID: [id number] TAIWO JIMENEZ MD at 1923 CC: [id number] DICTATION DATE: 01/17/17 1706 GREY WASHER: 01/19/17 0113 ADM IN [facility] [address] [place] [address]
--- NOTE | 2017-01-19 21:02 | NUR ---
AWAKE,ALERT, COMPLAINTS OF PAIN TO RLE.PERCOCET ONE TAB GIVEN. CARRINGTON WRAP TO RLE DRY INTACT. NO DEFICIERTS NOTED. CL IN REACH.
[2017-01-20] VITALS (9 sets, daily range): BP systolic 93–139; BP diastolic 48–90
--- NOTE | 2017-01-20 05:02 | NUR ---
PT AWAKENED WHEN DOOR OPENED TO CHECK ON HER. RESPIRATIONS EASY AND NO SIGNS OF DISTRESS NOTED. THE BED IS LOW, RAILS UP X'S 2 WITH CALL LIGHT AT HAND.
--- NOTE | 2017-01-20 05:17 | NUR ---
AWAKE WITH NO COMPLAINTS. CL IN REACH
[2017-01-20 07:17] LABS: BASOPHILS 0 % (0-2); EOSINOPHILS 0 % (0-7); HEMATOCRIT 26.6 % (36.0-48.0); HEMOGLOBIN 8.7 g/dL (12-16); IMMATURE GRANULOCYTES 0.6 % (0-5); LYMPHOCYTES 8.8 % (15-50); MCH 30.1 pg (26.0-34.0); MCHC 32.7 g/dL (31.0-37.0); MONOCYTES 5.2 % (2-11); NEUTROPHILS 85.4 % (40-80); PLATELET COUNT 243 10x3/uL (130-400); RBC 2.89 10x6/uL (4.00-5.40); RDW 15.5 % (11.5-14.5)
[2017-01-20 07:20] LABS: WBC 8.7 10x3/uL (4.8-10.8)
--- NOTE | 2017-01-20 07:25 | NUR ---
REPORT RECEIVED FROM CASE FILLER NURSE. CALL LIGHT IN REACH.
[2017-01-20 07:49] LABS: ALBUMIN 2.4 g/dL (3.4-5.0); ANION GAP 13.2 mmol/L (8-16); BILIRUBIN - TOTAL 0.26 mg/dL (0.2-1.3); CALCIUM 8.1 mg/dL (8.5-10.1); CARBON DIOXIDE 24.9 mmol/L (21.0-32.0); POTASSIUM - SERUM 4.1 mmol/L (3.5-5.1); PROTEIN - SERUM 5.8 g/dL (6.4-8.2)
--- NOTE | 2017-01-20 07:53 | NUR ---
ASSESSMENT COMPLETED. TAKEN OFF OF BEDPAN. PATIENT IN ROOM CRYING BECAUSE OF PAIN OF TO INCISION. ICE PACK TO LLE. WILL GET PAIN MED ALONG WITH AM MEDS. EXPLAINED TO PATIENT THAT SINCE SHE IS UNABLE TO GET UP AND MOVE AROUND LIKE SHE WAS SHE WILL NEED TO KEEP HERSELF TURNED EVERY 2 HOURS OR OUR HELP IF NEEDED, SHE WILL NEED TO USE HER INCENTIVE SPIROMETER, AND SHE WILL NEED A SCD TO RLE. NO OTHER NEEDS VOICED. CALL LIGHT IN REACH. WILL CONTINUE WITH PLAN OF CARE.
--- NOTE | 2017-01-20 08:36 | NUR ---
SCD APPLIED TO RLE ONLY.
--- NOTE | 2017-01-20 08:51 | NUR ---
AM MEDS ADMINISTERED. NORCO PO. DILAUDID MANUFACTURING TECHNOLOGIST INITIATED WITH SETTINGS OF 0.2/04/05.
--- NOTE | 2017-01-20 10:00 | NUR ---
STATES PAIN HAS DECREASED TO AN 8. CALL LIGHT IN REACH.
--- NOTE | 2017-01-20 11:00 | NUR ---
STATES PAIN HAS DECREASED TO A 8.
--- NOTE | 2017-01-20 12:00 | NUR ---
SITTING UP IN BED EATING LUNCH. NO C/O PAIN OR DISCOMFORT AT THIS TIME. NEURO CHECKS WNL. DENIES NEEDS. DRESSING TO LEFT LEG DRY AND INTACT.
--- NOTE | 2017-01-20 12:00 | NUR ---
JUAN AND PERCOCET PO. LEVCHRISTOPHERUIN IVPB. CALL LIGHT IN REACH.
--- NOTE | 2017-01-20 14:20 | NUR ---
IV TO LEFT FOREARM WITH SWELLING AND REDNESS. DC'D WITH TIP INTACT.
--- NOTE | 2017-01-20 16:35 | NUR ---
PERCOCET PO WITH AFTERNOON MEDS ADMINISTERED. IV SITED TO RIGHT FOREARM WITH 20 GA X1 STICK.
--- NOTE | 2017-01-20 17:45 | NUR ---
PRBC UNIT 1 INITIATED @ 125 CC/HR VIA PUMP PER LIZZIE TOMLINSON. VSS. WILL CONTINUE TO MONITOR.
--- NOTE | 2017-01-20 18:56 | NUR ---
NO CHANGES IN INITIAL ASSESSMENT. CALL LIGHT IN REACH. SCD TO RLE. CALL LIGHT IN REACH. WILL CONTINUE WITH PLAN OF CARE.
[2017-01-21] VITALS (13 sets, daily range): BP systolic 118–182; BP diastolic 64–87
[2017-01-21 05:04] LABS: BASOPHILS 0.3 % (0-2); EOSINOPHILS 3.4 % (0-7); HEMOGLOBIN 8.8 g/dL (12-16); IMMATURE GRANULOCYTES 0.8 % (0-5); LYMPHOCYTES 22.3 % (15-50); MCH 29.7 pg (26.0-34.0); MCHC 32.6 g/dL (31.0-37.0); MCV 91.2 fL (80.0-100.0); MEAN PLATELET VOLUME 8.8 fL (7.4-10.4); MONOCYTES 7.4 % (2-11); NEUTROPHILS 65.8 % (40-80); PLATELET COUNT 214 10x3/uL (130-400); RBC 2.96 10x6/uL (4.00-5.40); RDW 17.1 % (11.5-14.5); WBC 9.3 10x3/uL (4.8-10.8)
--- NOTE | 2017-01-21 05:08 | NUR ---
ASSESSED, PT IS AWAKE AND TALKING WITH LAB WHO IS AT THE BEDSIDE. SHE IS DOING WELL WITH NO SIGNS OF DISTRESS NOTED. THE BED IS LOW, RAILS UP X'S 2 WITH THE CALL LIGHT AT HAND.
[2017-01-21 05:27] LABS: ALBUMIN 2.4 g/dL (3.4-5.0); ANION GAP 10.4 mmol/L (8-16); BILIRUBIN - TOTAL 0.33 mg/dL (0.2-1.3); CARBON DIOXIDE 27.5 mmol/L (21.0-32.0); POTASSIUM - SERUM 3.9 mmol/L (3.5-5.1); PROTEIN - SERUM 5.9 g/dL (6.4-8.2)
--- NOTE | 2017-01-21 07:30 | NUR ---
RECIEVED PT DURING WALKING ROUNDS, PT RESTING IN BED WITH COMPLAINTS OF PAIN IN HER LEG, LUNCHROOM WORKER IN USE. RIGHT FOREARM IV RED AND SWOLLEN. IV DC'D, CATH INTACT. FLUIDS STARTED ON OTHER IV. ASSESSMENT DONE PER FLOWSHEET. BED IN LOW POSITION AND CALL LIGHT WITHIN REACH. WILL CONTINUE TO MONTIOR.
--- NOTE | 2017-01-21 10:37 | NUR ---
22G IV INSERTED PER MD ORDERS TO LEFT AC x2 STICKS, FLUSHED WITH 10CC NS, PT TOLERATED WELL. EMY SAMUEL CAMILLE INSTRUCTOR PRESENT
--- NOTE | 2017-01-21 11:50 | NUR ---
SMELLED CIG SMOKE COMING FROM ROOM, WENT INTO TO ROOM WITH CHARGE NURSE MEY LAWRENCE,RN PT ADMITTED TO SMOKING IN ROOM. CONFISCATED PT CIG AND SPRAY RIG OPERATOR AND EXPLAINED TO PT CONSEQUENCES OF SMOKING IN HOSPITAL AND WITH NICOTINE PATCH ON. PT WAS APOLIGETIC. STATED SHE HAD NO MORE ON HER PERSON. STARTED UNIT OF PRBC'S AT THIS TIME PER ORDER, WILL MONITOR PER PROTOCOL.
[2017-01-22] VITALS: BP 133/78
[2017-01-22 04:00] VITALS: BP 144/80
--- NOTE | 2017-01-22 05:10 | NUR ---
PATIENT RESTING IN BED WITH EYES CLOSED AND NO VISIBLE SIGNS OF DISTRESS. BED IN LOWEST POSITION AND CALL LIGHT WITHIN REACH.
--- NOTE | 2017-01-22 07:30 | NUR ---
RECIEVED PT DURING WALKING ROUNDS. PT RESTING IN BED WITH COMPLAINTS OF PAIN OF A 9 ON A SCALE OF 1-10. WRINKLE CHASER IN USE. ASSESSMENT DONE PER FLOWSHEET. BED IN LOW POSITION AND CALL LIGHT WITHIN REACH. WILL CONTINUE TO MONITOR.
[2017-01-22 07:36] LABS: BASOPHILS 0.3 % (0-2); EOSINOPHILS 4.6 % (0-7); HEMATOCRIT 30.7 % (36.0-48.0); HEMOGLOBIN 10.1 g/dL (12-16); IMMATURE GRANULOCYTES 0.9 % (0-5); LYMPHOCYTES 23.1 % (15-50); MCH 29.3 pg (26.0-34.0); MCHC 32.9 g/dL (31.0-37.0); MEAN PLATELET VOLUME 8.7 fL (7.4-10.4); MONOCYTES 6.8 % (2-11); NEUTROPHILS 64.3 % (40-80); PLATELET COUNT 176 10x3/uL (130-400); RBC 3.45 10x6/uL (4.00-5.40); RDW 16.3 % (11.5-14.5); WBC 10.9 10x3/uL (4.8-10.8)
[2017-01-22 07:51] LABS: ALBUMIN 2.2 g/dL (3.4-5.0); ANION GAP 10.1 mmol/L (8-16); BILIRUBIN - TOTAL 0.51 mg/dL (0.2-1.3); CALCIUM 8.1 mg/dL (8.5-10.1); CARBON DIOXIDE 28.8 mmol/L (21.0-32.0); POTASSIUM - SERUM 3.9 mmol/L (3.5-5.1); PROTEIN - SERUM 5.7 g/dL (6.4-8.2)
[2017-01-22 09:12] VITALS: BP 132/67
[2017-01-22 20:00] VITALS: BP 102/55
[2017-01-23] VITALS: BP 103/58
--- NOTE | 2017-01-23 02:00 | NUR ---
PT IN BED WITH NO DISTRESS. RESPIRATIONS EVEN AND UNLABORED. SIDE RAILS X 2. BED IS LOW. CALL LIGHT IN REACH.
[2017-01-23 04:00] VITALS: BP 128/69
--- NOTE | 2017-01-23 07:35 | NUR ---
ASSESSMENT COMPLETE. IV TO R FA PATENT. / NS INFUSING AT 30 CC/HR VIA PUMP. SL TO L AC. FOOT WORKER DILAUDID 0.2-10-4 IN USE FOR PAIN CONTROL. DRESSING INTACT TO L KNEE. DENIES ANY NEEDS AT THIS TIME.
[2017-01-23 08:32] VITALS: BP 141/83
[2017-01-23 10:46] LABS: ALBUMIN 2.3 g/dL (3.4-5.0); ALKALINE PHOSPHATASE 88 U/L (46-116); ALT (SGPT) 18 U/L (10-68); BILIRUBIN - TOTAL 0.61 mg/dL (0.2-1.3); CALC OSMOLALITY 269 mosm/kg (275-300); CALCIUM 8.1 mg/dL (8.5-10.1); CARBON DIOXIDE 28.1 mmol/L (21.0-32.0); CHLORIDE - SERUM 100 mmol/L (98-107); CREATININE - SERUM 0.8 mg/dL (0.6-1.3); GLUCOSE 101 mg/dL (74-106); POTASSIUM - SERUM 3.8 mmol/L (3.5-5.1); PROTEIN - SERUM 6.2 g/dL (6.4-8.2); SODIUM 135 mmol/L (136-145); UREA NITROGEN 13 mg/dL (7-18); eGFR NON AFRICAN AMERICAN 79 mL/min (90-120)
[2017-01-23 10:57] LABS: BASOPHILS 0.2 % (0-2); EOSINOPHILS 4.3 % (0-7); HEMOGLOBIN 10.6 g/dL (12-16); IMMATURE GRANULOCYTES 1.3 % (0-5); LYMPHOCYTES 22.5 % (15-50); MCH 28.9 pg (26.0-34.0); MCHC 32.1 g/dL (31.0-37.0); MCV 89.9 fL (80.0-100.0); MEAN PLATELET VOLUME 8.9 fL (7.4-10.4); MONOCYTES 8.3 % (2-11); NEUTROPHILS 63.4 % (40-80); PLATELET COUNT 201 10x3/uL (130-400); RBC 3.67 10x6/uL (4.00-5.40); RDW 15.7 % (11.5-14.5); WBC 8.8 10x3/uL (4.8-10.8)
--- NOTE | 2017-01-23 12:00 | NUR ---
DENIES ANY NEEDS AT THIS TIME.
[2017-01-23 12:44] VITALS: BP 109/85
--- NOTE | 2017-01-23 13:28 | NUR ---
NUTRITION MONITORING & EVAL CHART REVIEWED. PT TOLERATING REG DIET. 50 TO 100% INTAKE MEALS. REMAINS AT LOW NUTRITIONAL RISK. RD FOLLOWING
--- NOTE | 2017-01-23 15:00 | NUR ---
RESTING QUIETLY IN BED. DENIES ANY NEEDS AT PRESENT.
[2017-01-23 16:15] VITALS: BP 101/43
--- NOTE | 2017-01-23 17:44 | NUR ---
NO CHANGES NOTED AT PRESENT.
[2017-01-23 19:00] VITALS: BP 110/46
--- NOTE | 2017-01-23 20:00 | NUR ---
ASSESSMENT PER FLOWSHEET. IV PATENT RT FOREARM OF 1/2NS AT 30CC'S/HR SAFETY LAMP KEEPER OF DILAUDID IN USE WITH SETTINGS AT 0.2MG Q10MIN W/4MG Q4H L/O. DRESSING TO LEFT KNEE C/D/I. SALINE LOCK PATENT LEFT AC SITE CLEAR. SCD TO RT LEG ONLY.
--- NOTE | 2017-01-23 21:30 | NUR ---
MEDS GIVEN QAS PER MAR. VOIDS WELL ON BEDPAN.
--- NOTE | 2017-01-23 21:59 | NUR ---
REQUESTING ANXIETY MED VALIUM 5 MG PO GIVEN FOR ANXIETY.
--- NOTE | 2017-01-24 | NUR ---
PLACED ON BED BURNHAM VOIDS WELL.
--- NOTE | 2017-01-24 02:07 | NUR ---
RESTING QUIETLY DENIES NEEDS.
[2017-01-24 04:00] VITALS: BP 116/69
[2017-01-24 06:58] LABS: BASOPHILS 0.2 % (0-2); EOSINOPHILS 4.1 % (0-7); HEMATOCRIT 36.1 % (36.0-48.0); HEMOGLOBIN 11.5 g/dL (12-16); IMMATURE GRANULOCYTES 0.6 % (0-5); LYMPHOCYTES 22.5 % (15-50); MCH 29.2 pg (26.0-34.0); MCHC 31.9 g/dL (31.0-37.0); MCV 91.6 fL (80.0-100.0); MEAN PLATELET VOLUME 8.9 fL (7.4-10.4); MONOCYTES 7.7 % (2-11); NEUTROPHILS 64.9 % (40-80); PLATELET COUNT 204 10x3/uL (130-400); RBC 3.94 10x6/uL (4.00-5.40); RDW 15.6 % (11.5-14.5)
[2017-01-24 07:31] LABS: ALBUMIN 2.6 g/dL (3.4-5.0); ALKALINE PHOSPHATASE 105 U/L (46-116); BILIRUBIN - TOTAL 0.71 mg/dL (0.2-1.3); CALC OSMOLALITY 270 mosm/kg (275-300); CALCIUM 8.6 mg/dL (8.5-10.1); CARBON DIOXIDE 27.9 mmol/L (21.0-32.0); CHLORIDE - SERUM 99 mmol/L (98-107); CREATININE - SERUM 0.8 mg/dL (0.6-1.3); GLUCOSE 94 mg/dL (74-106); POTASSIUM - SERUM 3.6 mmol/L (3.5-5.1); PROTEIN - SERUM 7.1 g/dL (6.4-8.2); SODIUM 135 mmol/L (136-145); UREA NITROGEN 14 mg/dL (7-18); eGFR NON AFRICAN AMERICAN 79 mL/min (90-120)
[2017-01-24 07:32] LABS: ALT (SGPT) 24 U/L (10-68)
--- NOTE | 2017-01-24 07:45 | NUR ---
ASSESSMENT COMPLETE. IV TO R FA PATENT. 1/2 NS INFUSING AT 30 CC/HR. CHEESE BLENDER DILAUDID 0.2-10-4. SL TO L AC. CARRINGTON WRAP DRESSING INTACT TO L KNEE.
[2017-01-24 08:43] VITALS: BP 115/51
--- NOTE | 2017-01-24 11:48 | NUR ---
CM MET WITH PATIENT AND SHE STATED SHE WOULD RATHER GO HOME BUT SHE KNOWS SHE NEEDS TO HAVE REHAB. PATIENT CHOSE SEVERAL SNF FACILITIES ([facility] SIGNED) AND REFERRAL HAS BEEN FAXED. CM WILL CONTINUE TO FOLLOW PATIENT WITH D/C NEEDS AND PLANS.
--- NOTE | 2017-01-24 13:30 | NUR ---
DRESSING TO L KNEE CHANGED. YESSENIA INTACT TO INCISION. INCISION CLEANED WITH WOUND CLEANSER AND COVERED WITH AQUACEL AG.
[2017-01-24 13:56] VITALS: BP 115/50
[2017-01-24 16:17] VITALS: BP 120/58
--- NOTE | 2017-01-24 20:00 | NUR ---
ASSESSMENT PER FLOWSHEET. DRESSING TO LEFT KNEE C/D/I. IV PATENT RT FOREARM OF 1/2NS AT 30CC'S/HR. IN HOME BABY SITTER OF DILAUDID IN USE WITH SETTINGS AT 0.2MG Q10 MIN WITH 4MG Q4H L/O. LEFT AC SALLINE LOCK. SCD TO RT LEG.
--- NOTE | 2017-01-24 21:00 | NUR ---
MEDS GIVEN PER MAR.
--- NOTE | 2017-01-24 23:30 | NUR ---
RESTING AT THIS TIME.
--- NOTE | 2017-01-25 01:00 | NUR ---
AWAKE DRINKING COFFEE. VOIDS WELL ON BEDPAN.
[2017-01-25 04:00] VITALS: BP 109/69
[2017-01-25 05:19] LABS: BASOPHILS 0.3 % (0-2); HEMATOCRIT 32.6 % (36.0-48.0); HEMOGLOBIN 10.5 g/dL (12-16); IMMATURE GRANULOCYTES 0.8 % (0-5); LYMPHOCYTES 25.4 % (15-50); MCH 29.4 pg (26.0-34.0); MCHC 32.2 g/dL (31.0-37.0); MCV 91.3 fL (80.0-100.0); MEAN PLATELET VOLUME 8.9 fL (7.4-10.4); MONOCYTES 9.8 % (2-11); NEUTROPHILS 59.7 % (40-80); PLATELET COUNT 201 10x3/uL (130-400); RBC 3.57 10x6/uL (4.00-5.40); RDW 15.1 % (11.5-14.5); WBC 6.5 10x3/uL (4.8-10.8)
[2017-01-25 05:40] LABS: ALBUMIN 2.3 g/dL (3.4-5.0); ALKALINE PHOSPHATASE 88 U/L (46-116); ALT (SGPT) 18 U/L (10-68); CALC OSMOLALITY 266 mosm/kg (275-300); CALCIUM 8.5 mg/dL (8.5-10.1); CHLORIDE - SERUM 99 mmol/L (98-107); CREATININE - SERUM 0.8 mg/dL (0.6-1.3); GLUCOSE 102 mg/dL (74-106); POTASSIUM - SERUM 3.7 mmol/L (3.5-5.1); SODIUM 134 mmol/L (136-145); eGFR NON AFRICAN AMERICAN 79 mL/min (90-120)
[2017-01-25 05:42] LABS: UREA NITROGEN 10 mg/dL (7-18)
--- NOTE | 2017-01-25 06:37 | NUR ---
VOIDED ON BEDPAN. RESTING QUIETLY NO CHANGES IN ASSESSMENT.
--- NOTE | 2017-01-25 07:55 | NUR ---
PT AOX4 RESP EVEN AND NONLABORED PT DENIES NEEDS AT THIS TIME SRX2 BED AT LOWEST SETTING CALL LIGHT WITHIN REACH WILL CONTINUE TO MONITOR IV TO LEFT FOREARM PATENT AND INTACT AT THIS TIME
[2017-01-25 08:42] VITALS: BP 112/61
--- NOTE | 2017-01-25 09:21 | NUR ---
CM REASSESSMENT NOTE: PATIENT HAS BEEN DENIED BY [facility], AND [facility]. OTHER REFERRALS HAVE BEEN SENT TO [facility], AND [facility].
[2017-01-25 11:57] VITALS: BP 117/60
[2017-01-25 15:07] VITALS: BP 117/59
[2017-01-25 20:00] VITALS: BP 112/60
--- NOTE | 2017-01-25 20:00 | NUR ---
ASSESSMENT PER FLOWSHEET. IV PATENT LEFT HAND OF 1/2NS AT 30CC'S/HR PENSION AGENT OF DILAUDID IN USE WITH SETTINGS AT 0.2MG Q10MIN WITH 4MG Q4H L/O. DRESSING TO LEFT KNEE C/D/I. VOIDS WELL ON BEDPAN.
--- NOTE | 2017-01-25 21:00 | NUR ---
MEDS GIVEN PER AUG. PT SITTING UPRIGHT IN BED DRINKING HER COFFEE.
--- NOTE | 2017-01-26 | NUR ---
RESTING QUIETLY BODY IN GOOD ALIGNMENT.
[2017-01-26 04:00] VITALS: BP 108/54
[2017-01-26 05:59] LABS: BASOPHILS 0.3 % (0-2); EOSINOPHILS 3.1 % (0-7); HEMATOCRIT 35.8 % (36.0-48.0); HEMOGLOBIN 11.4 g/dL (12-16); IMMATURE GRANULOCYTES 0.8 % (0-5); LYMPHOCYTES 21.4 % (15-50); MCHC 31.8 g/dL (31.0-37.0); MCV 91.1 fL (80.0-100.0); MEAN PLATELET VOLUME 8.9 fL (7.4-10.4); MONOCYTES 11.3 % (2-11); NEUTROPHILS 63.1 % (40-80); PLATELET COUNT 228 10x3/uL (130-400); RBC 3.93 10x6/uL (4.00-5.40); RDW 14.9 % (11.5-14.5); WBC 6.4 10x3/uL (4.8-10.8)
[2017-01-26 06:29] LABS: ALBUMIN 2.4 g/dL (3.4-5.0); ANION GAP 10.9 mmol/L (8-16); BILIRUBIN - TOTAL 0.57 mg/dL (0.2-1.3); CALCIUM 8.5 mg/dL (8.5-10.1); CARBON DIOXIDE 29.7 mmol/L (21.0-32.0); CREATININE - SERUM 0.9 mg/dL (0.6-1.3); POTASSIUM - SERUM 3.6 mmol/L (3.5-5.1); PROTEIN - SERUM 6.6 g/dL (6.4-8.2)
--- NOTE | 2017-01-26 07:35 | NUR ---
ASSESSMENT PER FLOW.PT WITHOUT DISTRESS.STATES PAIN 10/10 SCALE TO LEFT KNEE.UROGYNAECOLOGIST USE INSTRUCTED. CALL LIGHT IN REACH
[2017-01-26 08:09] VITALS: BP 137/68
--- NOTE | 2017-01-26 08:25 | NUR ---
CM REASSESSMENT NOTE: PATIENT HAS BEEN ACCEPTED TO [facility]. [facility]ANO APPROVAL FOR 60 DAYS.
[2017-01-26] MEDS ORDERED: PERCOCET 10/3251 TA1 PO (08:27)
[2017-01-26] MEDS ORDERED: LEVAQUIN750 MG PO (09:03)
[2017-01-26] MEDS ORDERED: ELIQUIS2.5 MG PO (09:19)
[2017-01-26] MEDS ORDERED: PROTONIX40 MG PO (09:19)
[2017-01-26] MEDS ORDERED: COLACE100 MG PO (09:20)
[2017-01-26] MEDS ORDERED: NICODERM C1 PATCH .3 TRANSDERM (09:20)
[2017-01-26] MEDS ORDERED: FLORAJEN3 CAPS460 MG PO (09:20)
[2017-01-26 11:44] VITALS: BP 104/66
--- NOTE | 2017-01-26 14:19 | NUR ---
CM REASSESSMENT NOTE: PATIENT IS DISCHARGING TO [facility] TO A MEDICAID BED. FACILITY [facility] WILL PICK PATIENT UP AROUND 3-3:30 TODAY. CM CALLED [facility] REGARDING PATIENT NOT GOING ON IV ABX AT THIS TIME AND SPOKE TO VALENTINO AT [facility] AND SHE CHECKED WITH SOMEONE AND SAID THE APPROVAL WAS STILL GOOD FOR 60 DAYS.
--- NOTE | 2017-01-26 14:22 | NUR ---
SAHARA JUST FOUND OUT THAT PATIENT WANTED TO NOTIFY AYLIN MART ([employer] FACULT[employer] MEMBER) THAT SHE WAS GOING TO [facility] FOR LESS THAN 60 DAYS. SAHARA CALLED AYLIN WITH THIS INFORMATION AND HE STATED OK HE DID NOT EVEN KNOW SHE WAS IN HOSPITAL.
--- NOTE | 2017-01-26 14:36 | NUR ---
REPORT TO [facility],SPOKE WITH RICHARD
--- NOTE | 2017-01-26 15:17 | NUR ---
DISCHARGE INSTRUCTIONS,STATES UNDERSTANDING.IV DCD WITH CATH INTACT.LEFT UNIT WITH GUARDIAN AND FAMILY.
--- NOTE | 2017-01-26 15:18 | NUR ---
IV DCD WITH CATH INTACT.WAITING ON TRANSPORT TO [facility].
[2017-01-26 15:25] VITALS: BP 108/41
--- NOTE | 2017-01-26 16:03 | NUR ---
LEFT UNIT VIA WHEELCHAIR FOR TRANSPORT TO [facility]
--- NOTE | 2017-01-26 16:05 | NUR ---
PT SITTING UP IN BED,SHE IS PULLING DRESSING OFF HER KNEE AND HAS ALCOHOL PAD IN HER HAND.INSTRUCTED PT NOT TO PULL DRESSINGOFF.INSTRUCTED HER SHE IS TO LEAVE IN PLACE INSTRUCTED. NURSING STAFF TO PROVIDE DRESSING CARE.ASSISTED IN WHEELCHAIR AND PT IS LEAVING FOR NS AND REHAB.
[2017-01-28 19:08] LABS: AEROBE ID Preliminary report (()); RESULT 1 Gram negative rods (())
== END 2017-01-26 16:14 | DRG 486 ==
LOC: D.OPS 10:58 → D.MS 19:38 → D.OPS 23:42 → D.MS 01-26 16:14
PROVIDERS: Anesthesiology; Family Medicine; Student in an Organized Health Care Education/Training Program; ADMIT Orthopaedic Surgery
PROC: 0QB70ZZ Excision of Left Upper Femur, Open Approach (ICD-10-PCS; principal; 2017-01-12 14:00)
PROC: 0S9D0ZZ Drainage of Left Knee Joint, Open Approach (ICD-10-PCS; 2017-01-18)
PROC: 0DB68ZX Excision of Stomach, Via Natural or Artificial Opening Endoscopic, Diagnostic (ICD-10-PCS; 2017-01-18)
PROC: 0SPD08Z Removal of Spacer from Left Knee Joint, Open Approach (ICD-10-PCS; 2017-01-19)
PROC: 0SHD08Z Insertion of Spacer into Left Knee Joint, Open Approach (ICD-10-PCS; 2017-01-19)
DX: T84.54XA Infection and inflammatory reaction due to internal left knee prosthesis, initial encounter (principal); T81.32XA Disruption of internal operation (surgical) wound, not elsewhere classified, initial encounter; D62 Acute posthemorrhagic anemia; F17.203 Nicotine dependence unspecified, with withdrawal; F19.90 Other psychoactive substance use, unspecified, uncomplicated; G62.9 Polyneuropathy, unspecified; Z86.19 Personal history of other infectious and parasitic diseases; I10 Essential (primary) hypertension; F41.8 Other specified anxiety disorders; K25.9 Gastric ulcer, unspecified as acute or chronic, without hemorrhage or perforation; B96.5 Pseudomonas (aeruginosa) (mallei) (pseudomallei) as the cause of diseases classified elsewhere; R19.7 Diarrhea, unspecified

== ENCOUNTER 2017-03-20 09:45 | Inpatient (IN) | payer MEDICAID ==
[~2017-03-20] VITALS: Ht 172.7 cm; Wt 115.5 kg
--- NOTE | ~2017-03-20 | OP ---
PATIENT NAME: SWAPNA CAR MEDICAL RECORD: [id number] :64 LOCATION:D.MS Jones221Kevin ADMISSION DATE:03/20/17 SURGEON: PARKER JAQUEZ MD DATE OF OPERATION: 03/20/2017 PREOPERATIVE DIAGNOSES: Infected left knee with previous I&D and spacer placement times 2. POSTOPERATIVE DIAGNOSES: Infected left knee with previous I&D and spacer placement times 2. PROCEDURES: Repeat excisional debridement, removal of cement spacer and placement of another. SURGEON: Parker Jaquez MD. ANESTHESIA: General. INTRAOPERATIVE COMPLICATIONS: None. SUMMARY OF PATHOLOGIC FINDINGS: As this patient was prepared to get a revision total knee, upon entering the knee, it had the general appearance of infection and not prepared for a knee replacement. OPERATIVE SUMMARY IN DETAIL: After obtaining the appropriate preoperative orthopedic surgery consent as well as anesthetic consultation, evaluation and clearance, the patient was brought to the operating room and placed on operating table in supine position. After adequate general laryngeal mask airway was administered, tourniquet was placed about the proximal aspect of the left lower extremity. Left lower extremity was then prepped and draped in a routine sterile fashion. The leg was elevated and exsanguinated, tourniquet inflated to 350 mmHg. The previously utilized incision was taken down to the level of the paramedian aspect of the knee. Paramedian arthrotomy was performed. At this point, the fluid in the knee cavity itself appeared to be infectious. This was cultured and sent. The previously placed cement spacer and prudencio were taken out. A combination of rongeur, curettage as well as scalpel were utilized to cut away all skin, subcutaneous tissue, portions of fat, fascia, muscle and bone. Anything that appeared to be infected was removed. Copious pulsatile lavage irrigation was followed by replacement of the cement spacer without a prudencio this time. The cement spacer was antibiotic-laden. Paramedian arthrotomy was closed with #2 Ethibond followed by #1 Vicryl, 2-0 Vicryl and skin diane. Sterile dressings were applied. Tourniquet was deflated. The patient was awakened and taken to the recovery room in stable condition. All final needle and sponge counts were correct. TRANSINT:[id number] Voice Confirmation ID: [id number] DOCUMENT ID: [id number] OPERATIVE REPORT [id number] SWAPNA CAR MD, PARKER GUTIERREZ CC: [id number] DICTATION DATE: 03/25/17 0949 ENGINEERING ADMINISTRATOR: 03/25/17 1113 DIS IN 03/24/17 [facility] [address] [place] [address]
[~2017-03-20 09:45] MED LIST changes: -CELEXA10 MG PO; +COLACE100 MG PO; +FLORAJEN3 CAPS460 MG PO; +LEVAQUIN750 MG PO; +NICODERM C1 PATCH .3 TRANSDERM; +PROTONIX40 MG PO
[2017-03-20 10:57] LABS: CALCIUM 9.4 mg/dL (8.5-10.1); CARBON DIOXIDE 29.6 mmol/L (21.0-32.0); CREATININE - SERUM 1.2 mg/dL (0.6-1.3); POTASSIUM - SERUM 3.6 mmol/L (3.5-5.1)
[2017-03-20 11:03] LABS: APTT 28.3 SECONDS (22.8-39.4); INR 0.94 (0.85-1.17); PROTIME 12.4 SECONDS (11.6-15.0)
[2017-03-20 11:47] LABS: BASOPHILS 0.3 % (0-2); EOSINOPHILS 1.1 % (0-7); HEMATOCRIT 34.8 % (36.0-48.0); HEMOGLOBIN 11.3 g/dL (12-16); IMMATURE GRANULOCYTES 0.3 % (0-5); LYMPHOCYTES 26.6 % (15-50); MCH 28.5 pg (26.0-34.0); MCHC 32.5 g/dL (31.0-37.0); MCV 87.7 fL (80.0-100.0); MEAN PLATELET VOLUME 8.9 fL (7.4-10.4); MONOCYTES 6.1 % (2-11); NEUTROPHILS 65.6 % (40-80); PLATELET COUNT 210 10x3/uL (130-400); RBC 3.97 10x6/uL (4.00-5.40); WBC 7.6 10x3/uL (4.8-10.8)
[2017-03-20 12:04] VITALS: BP 97/43; BMI 30.7
[2017-03-20 14:06] LABS: APPEARANCE CLEAR (CLEAR); BILIRUBIN NEGATIVE (NEGATIVE); COLOR YELLOW (YELLOW); GLUCOSE NEGATIVE (NEGATIVE); KETONE NEGATIVE (NEGATIVE); LEUKOCYTE ESTERASE NEGATIVE (NEGATIVE); NITRITE NEGATIVE (NEGATIVE); PROTEIN NEGATIVE (NEGATIVE); UROBILINOGEN NORMAL (NORMAL)
[2017-03-20 17:11] VITALS: BP 137/89
[2017-03-20 17:15] VITALS: Ht 172.7 cm; Wt 115.5 kg
[2017-03-20 17:45] VITALS: BP 127/99
[2017-03-20 18:00] VITALS: BP 137/81
[2017-03-20 18:15] VITALS: BP 120/57
--- NOTE | 2017-03-20 18:56 | NUR ---
ATE ALL OF MEAL WITHOUT NAUSEA OR INCREASED PAIN. DENIES NEEDS. REPORTS CARTOGRAPHY PROFESSOR WORKING WELL FOR PAIN MANAGEMENT.
--- NOTE | 2017-03-21 | NUR ---
EYES CLOSED RESPIRATIONS WITH EASE AND UNLABORED SR UP X2 CALL LIGHT WITHIN REACH.
--- NOTE | 2017-03-21 03:20 | NUR ---
REC'D IN BED REQUESTING ICE CREAMM AND PRISICLLA CRACKERS.ACEWRAP DRSG. INTACT TO LEFT KNEE. FOOT PINK AND WARM PEDAL PULSE PRESENT.HEELS BRIDGED.WILL CONTINUE TO MONITOR FOR ANY CHGES. AND FOLLOW CURRENT PLAN OF CARE.
[2017-03-21 04:00] VITALS: BP 133/68
[2017-03-21 07:10] LABS: HEMATOCRIT 31.8 % (36.0-48.0); HEMOGLOBIN 10.1 g/dL (12-16)
--- NOTE | 2017-03-21 07:30 | NUR ---
AWAKE AND ALERT. ORIENTED X3. NO C/O AT THIS TIME. LUNGS ARE CLEAR BILATERALLY, NO COUGH NOTED. SKIN IS INTACT WITHOUT REDNESS EXCEPT INCISION TO LEFT KNEE WHICH IS DRY AND INTACT. REPORTS PAIN WELL MANAGED WITH USE OF TEST BORING CREW CHIEF. IV TO LEFT HAND IS PATENT WITHOUT REDNESS AT INSERTION SITE. DENIES NEEDS.
--- NOTE | 2017-03-21 08:06 | NUR ---
Wound consult: Pt dressing to left knee not to be removed by nursing. Per her statement it was reinforced during security shift supervisor due to bleeding. Pt states she had hardware (prudencio) removed surgically due to infection yesterday 03/20/[address] Garay has told her he thinks it is infected. Area around knee is slightly swollen, pink, and slightly warm. Dressing was reinforced with ABD pads and wrapped with CARRINGTON bandage(s) as previously wrapped. Per visit by Madelyn Amaral APRN during this assessment, Dr. Pham has been consulted regarding possible infection/antibiotics as pt has no antibiotics ordered at this time. Pt does however have orders for pain medication and has been using her FIRE MEDIC frequently, states it is effective for pain control. Pts call light is in reach and she is able to make needs known. No orders obtained regarding this consult, wound not assessed due to type of dressing in place currently. Will need f/u when this dressing removed, reccommend clean with wound cleanser or normal saline, cover with island dressing daily and PRN.
[2017-03-21 08:31] VITALS: BP 143/76
[2017-03-21 09:13] LABS: ERYTHROCYTE SEDIMENTATION RATE 27 mm/hr (0-30)
--- NOTE | 2017-03-21 10:00 | NUR ---
ASSISTED WITH BED BURNHAM PER STAFF. VOIDED CLEAR YELLOW URINE WITHOUT DIFFICULTY. SKIN CARE PER SELF.
--- NOTE | 2017-03-21 12:30 | NUR ---
LUNCH SERVED IN ROOM. FEEDS SELF WITHOUT DIFFICULTY.
[2017-03-21 13:03] VITALS: BP 11/59
--- NOTE | 2017-03-21 14:00 | NUR ---
IV TO LEFT WRIST/HAND LEAKING. D/C WITH CATHETER INTACT. RESITED TO LEFT FOREARM AFTER ONE ATTEMPT WITH 22 G. TOLERATED WITH C/O PAIN.
--- NOTE | 2017-03-21 15:00 | NUR ---
ASSISTED WITH BED BURNHAM PER STAFF.VOIDED CLEAR YELLOW URINE WITHOUT DIFFICULTY.
[2017-03-21 16:26] VITALS: BP 121/71
[2017-03-21 19:00] VITALS: BP 186/72
--- NOTE | 2017-03-21 20:16 | NUR ---
PT IS SITTING UP IN BED WATCHING TELEVISION, PT LEFT KNEE IS LEAKING, ADVISED WILL DO DRESSING CHANGE WITH MED PASS. PT BED ON LOW POSITION CALL LIGHT IN REACH
--- NOTE | 2017-03-21 21:36 | NUR ---
PT LYING IN BED, CHANGED DRESSIONG ON PT DUE TO SATURATED DRESSING, PT TOLERATED WELL. WILL CONTINUE TO MONITOR PT
[2017-03-22] VITALS: BP 127/55
--- NOTE | 2017-03-22 02:00 | NUR ---
PT IN BED WITH NO DISTRESS. RESPIRATIONS EVEN AND UNLABORED. SIDE RAILS UP X 2. BED IS LOW. CALL LIGHT IS IN REACH.
[2017-03-22 04:00] VITALS: BP 164/66
[2017-03-22 06:25] LABS: HEMATOCRIT 32.8 % (36.0-48.0); HEMOGLOBIN 10.1 g/dL (12-16)
[2017-03-22 06:36] LABS: ANION GAP 8.4 mmol/L (8-16); CALCIUM 8.2 mg/dL (8.5-10.1); CARBON DIOXIDE 29.4 mmol/L (21.0-32.0); POTASSIUM - SERUM 3.8 mmol/L (3.5-5.1)
--- NOTE | 2017-03-22 07:40 | NUR ---
PATIENT RECEIVED ALERT IN BED. NO SIGNS OF DISTRESS NOTED. C/O PAIN TO IV SITE. IV SITE ASSESSED NOTED TO BE SWOLLEN AND RED. IV D/C WITH CATH TIP INTACT. PATIENT STATES "I TOLD MY NIGHT NURSE. I'VE BEEN WITHOUT PAIN MEDICATION FOR AND HOUR AND HALF SINCE I COULDN'T USE MY PAIN BUTTON." NEW 22 GAUGE IV SITED TO RIGHT FOREARM X1 ATTEMPT. FLUSHES EASY WITH BRISK BLOOD RETURN PRESENT. SECURED WITH TAPE AND TEGADERM. IVF AND P 3 ARMAMENT/ORDNANCE IMA TECHNICIAN PUMP RECONNECT. INFUSING WITHOUT DIFFICULTY. WELL TOLERATED.
[2017-03-22 08:26] VITALS: BP 131/66
--- NOTE | 2017-03-22 08:40 | NUR ---
PATIENT ALERT IN BED. NO SIGNS OF DISTRESS NOTED. SCHEDULED MEDICATION ADMINISTERED. DENIES NEEDS. SIDE RAILS UP X2. BED IN LOW POSITION. CALL LIGHT AND CONTRACT IMPLEMENTATION ANALYST BUTTON IN REACH.
--- NOTE | 2017-03-22 11:00 | NUR ---
SITTING UP IN CHAIR AT BEDSIDE PER PT. NO SIGNS OF DISTRESS NOTED. CALL LIGHT AND GAS TRANSFER OPERATOR BUTTON IN REACH.
[2017-03-22 13:08] VITALS: BP 115/60
--- NOTE | 2017-03-22 14:25 | NUR ---
PATIENT ALERT IN BED VISITING WITH FAMILY. NO SIGNS OF DISTRESS NOTED. SCHEDULED MEDICATION ADMINISTERED. DENIES NEEDS. SIDE RAILS UP X2. BED IN LOW POSITION. CALL LIGHT IN REACH.
--- NOTE | 2017-03-22 15:12 | NUR ---
Patient Name: SWAPNA CAR Admission Status: Elective Accout number: [id number] Admission Date: 03-20-2017 : 1960 Admission Diagnosis:INFECT/INFLM REACTION DUE TO INTERNAL LEFT KNEE PROSTH, Attending: PARKER JAQUEZ Current LOS: 2 Anticipated DC Date: Planned Disposition: [facility] Facility Primary Insurance: MEDICAID [place] Discharge Planning Comments: CM met with patient to assess discharge planning needs. Patient discharge plan is to return to [facility] at discharge. CM called Anh with [facility] for placement when the time comes. Patient has a walker at home and a shower chair. CM will continue to follow and assist with discharge planning needs PCP: Francine Correia (son) [phone] Yanet Correia (sister) [phone] Health Associate: Neetu Mcghee * Is the patient Alert and Oriented? Yes 0 * PCP FRANCINE 0 * Pharmacy [facility] 0 * Preadmission Environment [facility] Facility 0 * Facility Name [facility] 0 * ADLs Partial Dependent 0 * Partial ADLs (Assistance needed) Ambulation 0 * Equipment Shower Chair Walker 0 * List name and contact numbers for known caregivers / representatives who currently or will assist patient after discharge: ELAINE CAR [phone] * Additional services required to return to the preadmission environment? Yes 0 * Can the patient safely return to the preadmission environment? Yes 0 * Has this patient been hospitalized within the prior 30 days at any hospital? No 0 Grand Total: 0
--- NOTE | 2017-03-22 16:28 | NUR ---
PATIENT IN LOW ARTHUR POSITION RESTING WITH EYES CLOSED. RESPIRATIONS EVEN AND UNLABORED. WAKES EASY. SCHEDULED MEDICATION ADMINISTERED. SIDE RAILS UP X2. BED IN LOW POSITION. CALL LIGHT IN REACH.
[2017-03-22 17:40] VITALS: BP 119/47
[2017-03-22 19:00] VITALS: BP 114/57
[2017-03-23 04:00] VITALS: BP 134/68
--- NOTE | 2017-03-23 07:45 | NUR ---
PROVIDED PT WITH COFFEE AT THIS TIME. DRESSING TO LEFT KNEE C/D/I. BED ALARM ON AND CALL LIGHT IN REACH. PT AWAKE AND ALERT. WILL CONTINUE WITH PLAN OF CARE.
[2017-03-23 08:39] LABS: HEMATOCRIT 31.1 % (36.0-48.0); HEMOGLOBIN 9.8 g/dL (12-16)
--- NOTE | 2017-03-23 09:18 | NUR ---
SCHEDULED MEDICATIONS ADMINISTERED AT THIS TIME. BED ALARM ON. DENIES NEEDS, CALL LIGHT IN REACH, WILL CONTINUE WITH PLAN OF CARE.
[2017-03-23 09:46] VITALS: BP 134/77
[2017-03-23 12:55] VITALS: BP 129/55
--- NOTE | 2017-03-23 14:11 | NUR ---
SCHEDULED MEDICATIONS AND WORKERS COMPENSATION ADJUSTER CHANGED AT THIS TIME. DENIES FURTHER NEEDS. UP IN CHAIR WITH CALL LIGHT IN REACH. WILL CONTINUE WITH PLAN OF CARE.
--- NOTE | 2017-03-23 15:00 | NUR ---
DRESSING TO LEFT KNEE REMOVED DUE TO SATURATION. NEW MEPILEX DRESSING APPLIED, 4X4'S OVER DRESSING FOR REINFORCEMENT, ABD PAD OVER THAT AND WRAPPED WITH [place].
[2017-03-23 16:42] VITALS: BP 122/56
[2017-03-23 20:20] VITALS: BP 120/78
[2017-03-24 00:40] VITALS: BP 141/69
[2017-03-24 04:56] VITALS: BP 138/68
[2017-03-24 05:32] LABS: BASOPHILS 0.4 % (0-2); EOSINOPHILS 2.5 % (0-7); HEMATOCRIT 30.5 % (36.0-48.0); HEMOGLOBIN 9.6 g/dL (12-16); IMMATURE GRANULOCYTES 0.4 % (0-5); LYMPHOCYTES 27.5 % (15-50); MCH 27.7 pg (26.0-34.0); MCHC 31.5 g/dL (31.0-37.0); MCV 87.9 fL (80.0-100.0); MEAN PLATELET VOLUME 8.8 fL (7.4-10.4); MONOCYTES 7.4 % (2-11); NEUTROPHILS 61.8 % (40-80); PLATELET COUNT 187 10x3/uL (130-400); RBC 3.47 10x6/uL (4.00-5.40); RDW 15.4 % (11.5-14.5)
[2017-03-24 05:50] LABS: ANION GAP 10.3 mmol/L (8-16); CALCIUM 8.5 mg/dL (8.5-10.1); CARBON DIOXIDE 28.4 mmol/L (21.0-32.0); POTASSIUM - SERUM 3.7 mmol/L (3.5-5.1)
--- NOTE | 2017-03-24 07:25 | NUR ---
AWAKE AND ALERT AT THIS TIME. BED ALARM ON AND CALL LIGHT IN REACH. WILL CONTINUE WITH PLAN OF CARE.
--- NOTE | 2017-03-24 08:55 | NUR ---
SCHEDULED MEDICATIONS ADMINISTERED AT THIS TIME, WELL PRN OXY FOR PAIN PER ORDER. BED ALARM ON AND CALL LIGHT IN REACH, WILL CONTINUE WITH PLAN OF CARE.
[2017-03-24] MEDS ORDERED: VANCOMYCIN 1 GM/1 G1 IV (09:10)
[2017-03-24] MEDS ORDERED: ELIQUIS2.5 MG PO (09:10)
[2017-03-24] MEDS ORDERED: OXYCODONE HCL5 MG PO (09:11)
[2017-03-24] MEDS ORDERED: FLORAJEN3 CAPS460 MG PO (09:12)
[2017-03-24 09:39] VITALS: BP 158/84
--- NOTE | 2017-03-24 11:18 | NUR ---
PATIENT DISCHARGING TO [facility] TO A SKILLED BED. WAITING ON A DIVER PUMPER TIME. CM WILL CONTINUE TO FOLLOW AND ASSIST
--- NOTE | 2017-03-24 12:00 | NUR ---
DRESSING TO LEFT KNEE CHANGED PER ORDERS.
--- NOTE | 2017-03-24 12:43 | NUR ---
REPORT CALLED TO MARY GOYAL AT [facility], .
--- NOTE | 2017-03-24 15:59 | NUR ---
DISCHARGED AT THIS TIME.
[2017-03-29 19:12] LABS: AEROBE ID Final report (())
== END 2017-03-24 16:00 | DRG 949 ==
LOC: D.MS 09:52 → D.SDCHOLD 09:52 → D.MS 16:47
PROVIDERS: Student in an Organized Health Care Education/Training Program; ADMIT Orthopaedic Surgery
PROC: 0SHD08Z Insertion of Spacer into Left Knee Joint, Open Approach (ICD-10-PCS; 2017-03-20)
PROC: 0SPD08Z Removal of Spacer from Left Knee Joint, Open Approach (ICD-10-PCS; principal; 2017-03-20 12:15)
PROC: 02HV33Z Insertion of Infusion Device into Superior Vena Cava, Percutaneous Approach (ICD-10-PCS; 2017-03-23)
PROC: B548ZZA Ultrasonography of Superior Vena Cava, Guidance (ICD-10-PCS; 2017-03-23)
DX: T84.54XD Infection and inflammatory reaction due to internal left knee prosthesis, subsequent encounter (principal); F17.203 Nicotine dependence unspecified, with withdrawal; I10 Essential (primary) hypertension; F41.8 Other specified anxiety disorders; E03.9 Hypothyroidism, unspecified; Z86.19 Personal history of other infectious and parasitic diseases

== ENCOUNTER 2017-05-31 10:00 | Inpatient (IN) | payer MEDICAID ==
[~2017-05-31] VITALS: Ht 172.7 cm; Wt 122.7 kg
[~2017-05-31 10:00] MED LIST changes: +VANCOMYCIN 1 GM/1 G1 IV
[2017-06-01] MEDS ORDERED: VITAMIN D250000 UNIT PO (13:43)
[2017-06-01] MEDS ORDERED: CATAPRES0.1 MG PO (13:46)
[2017-06-01 14:58] LABS: BASOPHILS 0.4 % (0-2); EOSINOPHILS 1.9 % (0-7); HEMATOCRIT 37.4 % (36.0-48.0); HEMOGLOBIN 11.6 g/dL (12-16); IMMATURE GRANULOCYTES 0.3 % (0-5); LYMPHOCYTES 29.8 % (15-50); MCH 26.1 pg (26.0-34.0); MEAN PLATELET VOLUME 8.9 fL (7.4-10.4); MONOCYTES 6.3 % (2-11); NEUTROPHILS 61.3 % (40-80); PLATELET COUNT 286 10x3/uL (130-400); RBC 4.45 10x6/uL (4.00-5.40); WBC 10.2 10x3/uL (4.8-10.8)
[2017-06-01 15:03] LABS: APPEARANCE HAZY (CLEAR); BILIRUBIN NEGATIVE (NEGATIVE); COLOR DK YELLOW (YELLOW); GLUCOSE NEGATIVE (NEGATIVE); KETONE NEGATIVE (NEGATIVE); NITRITE NEGATIVE (NEGATIVE); PROTEIN NEGATIVE (NEGATIVE); SPECIFIC GRAVITY 1.015 (1.005-1.020); UROBILINOGEN NORMAL (NORMAL)
[2017-06-01 15:06] LABS: APTT 25.5 SECONDS (22.8-39.4); INR 0.9 (0.85-1.17); PROTIME 11.8 SECONDS (11.6-15.0)
[2017-06-01 15:15] LABS: ALBUMIN 3.6 g/dL (3.4-5.0); ANION GAP 13.2 mmol/L (8-16); BILIRUBIN - TOTAL 0.43 mg/dL (0.2-1.3); CALCIUM 8.8 mg/dL (8.5-10.1); CARBON DIOXIDE 25.6 mmol/L (21.0-32.0); CREATININE - SERUM 1.2 mg/dL (0.6-1.3); POTASSIUM - SERUM 3.8 mmol/L (3.5-5.1); PROTEIN - SERUM 8.2 g/dL (6.4-8.2)
[2017-06-05] MEDS ORDERED: HYDROCODONE-APA1 TAB PO (08:30)
[2017-06-05 08:37] VITALS: BP 127/74; BMI 41.1
--- NOTE | 2017-06-05 13:21 | NUR ---
1243 - VANCOMYCIN 1 GRAM IN 250 ML INFUSING UPON ARRIVAL TO PACU. APPROX 150 ML REMAINING IN BAG, SET TO INFUSE AT 250 ML/HR.
--- NOTE | 2017-06-05 14:15 | NUR ---
RECEIVED TO ROOM 2208 FROM RECOVERY ROOM VIA BED. LEFT KNEE WITH DRSG AND ICE. SCDs TO BLE. CALL LIGHT IN REACH. WILL CONTINUE WITH PLAN OF CARE.
[2017-06-05 14:17] VITALS: BP 139/83
--- NOTE | 2017-06-05 16:15 | NUR ---
RESTING WITH EYES CLOSED. RESP EVEN AND UNLABORED. CALL LIGHT IN REACH.
--- NOTE | 2017-06-05 18:38 | NUR ---
ASSESSMENT PER FLOW SHEET.PT WITHOUT DISTRESS.CALL LIGHT IN REACH
[2017-06-05 18:44] VITALS: BP 139/83; Ht 172.7 cm; Wt 122.7 kg
--- NOTE | 2017-06-05 18:55 | NUR ---
INCENTIVE SPIROMETER GIVEN TO PATIENT AND INSTRUCTED ON USE. VERBALIZED UNDERSTANDING. SCDs TO BLE. BED ALARM TURNED ON. O2 HAS BEEN WEANED TO 3L PER OXYMIZER. CALL LIGHT IN REACH. WILL CONTINUE WITH PLAN OF CARE.
[2017-06-05 20:00] VITALS: BP 149/90
[2017-06-06 04:00] VITALS: BP 155/89
--- NOTE | 2017-06-06 06:03 | NUR ---
DRSG ON LEFT KNEE RE-ENFORCED WITH LIZZIE RIVERA ASSIST.
[2017-06-06 07:27] LABS: HEMATOCRIT 29.7 % (36.0-48.0); MCH 25.8 pg (26.0-34.0); MCHC 30.3 g/dL (31.0-37.0); MCV 85.1 fL (80.0-100.0); MEAN PLATELET VOLUME 8.9 fL (7.4-10.4); RBC 3.49 10x6/uL (4.00-5.40)
--- NOTE | 2017-06-06 08:47 | NUR ---
AWAKE AND ALERT. ORIENTED X3. NO C/O AT THIS TIME. LUNGS ARE CLEAR BILATERALLY, NO COUGH NOTED. SKIN IS INTACT WITHOUT REDNESS EXCEPT INCISION TO LEFT KNEE WHICH HAS A DRESSING IN PLACE. IV TO LEFT HAND IS PATENT WITHOUT REDNESS AT INSERTION SITE. DENIES NEEDS. ASSISTED WITH BED BURNHAM PER STAFF. VOIDED 250 CC CLEAR YELLOW URINE. SKIN CARE PER SELF.
[2017-06-06 09:11] VITALS: BP 184/83
[2017-06-06 11:56] VITALS: BP 166/75
--- NOTE | 2017-06-06 13:28 | NUR ---
Patient Name: SWAPNA CAR Admission Status: Elective Accout number: [id number] Admission Date: 06-05-2017 : 1960 Admission Diagnosis: Attending: PARKER JAQUEZ Current LOS: 1 Anticipated DC Date: Planned Disposition: Snf Facility Primary Insurance: MEDICAID [place] Discharge Planning Comments: CM met with patient to assess discharge planning needs. [facility] a [facility] where she plans on returning too when she is ready for discharge. She stated that she has a walker and a wheelchair at home. CM will continue to follow and assist with discharge planning needs. PCP: [facility] Yanet Correia [phone] Supervisor [place]: Neetu Mcghee * Is the patient Alert and Oriented? Yes 0 * How many steps to enter\exit or inside your home? 0 0 * PCP Jasson 0 * Pharmacy [facility] 0 * Preadmission Environment Snf Facility 0 * Facility Name [facility] 0 * ADLs Partial Dependent 0 * Partial ADLs (Assistance needed) Ambulation 0 * Equipment Rolling Walker Wheelchair 0 * Additional services required to return to the preadmission environment? No 0 * Can the patient safely return to the preadmission environment? Yes 0 * Has this patient been hospitalized within the prior 30 days at any hospital? No 0 Grand Total: 0
--- NOTE | 2017-06-06 15:15 | NUR ---
REQUESTED AND GIVEN ONE PERCOCET PO FOR C/O LEFT KNEE PAIN LEVEL 6. WILL MONITOR.
[2017-06-06 15:23] VITALS: BP 125/80
--- NOTE | 2017-06-06 16:45 | NUR ---
DRESSING TO LEFT KNEE SATURATED WITH BLOOD. CHANGED PER STAFF. PRESSURE DRESSING PLACED ON ACTUAL OOZING AREA. WILL MONITOR. ICE BAG IN PLACE.
[2017-06-06 20:00] VITALS: BP 119/57
--- NOTE | 2017-06-06 23:10 | NUR ---
REC'D IN BED.LEFT LEG ELEVATED ICE BAG APPLIED TO RIGHT KNEE ACEWRAP DRSG DRY AND INTACT AT PRESENT TIME.NEUROVASCULAR STATUS WNL PEDAL PULSE PRESENT DENIES CALF PAIN OR TENDERNESS ON DORSIFLEXION WILL CONTINUE TO MONITOR FOR ANY CHGES. AND FOLLOW CURRENT PLAN OF CARE.
[2017-06-07 04:00] VITALS: BP 161/75
--- NOTE | 2017-06-07 05:00 | NUR ---
EYES CLOSED RESPIRATIONS WITH EASE AND UNLABORED.
[2017-06-07 05:57] LABS: HEMATOCRIT 27.6 % (36.0-48.0); HEMOGLOBIN 8.5 g/dL (12-16); MCH 25.9 pg (26.0-34.0); MCHC 30.8 g/dL (31.0-37.0); MCV 84.1 fL (80.0-100.0); MEAN PLATELET VOLUME 8.8 fL (7.4-10.4); RBC 3.28 10x6/uL (4.00-5.40); RDW 15.2 % (11.5-14.5)
[2017-06-07 07:57] VITALS: BP 116/56
[2017-06-07 08:10] LABS: ALBUMIN 2.8 g/dL (3.4-5.0); ANION GAP 12.7 mmol/L (8-16); BILIRUBIN - TOTAL 0.1 mg/dL (0.2-1.3); CALCIUM 7.9 mg/dL (8.5-10.1); CARBON DIOXIDE 27.2 mmol/L (21.0-32.0); POTASSIUM - SERUM 3.9 mmol/L (3.5-5.1); PROTEIN - SERUM 6.3 g/dL (6.4-8.2)
--- NOTE | 2017-06-07 10:04 | NUR ---
SAHARA spoke with Viry at [facility] to let her know that the patient could possibly be discharged back tomorrow, CM will send updated info
[2017-06-07 12:30] VITALS: BP 117/64
[2017-06-07 15:47] VITALS: BP 136/67
--- NOTE | 2017-06-07 18:16 | NUR ---
LYING IN BED,WITHOUT DISTRESS.CALL LIGHT IN REACH
[2017-06-07 20:00] VITALS: BP 118/56
[2017-06-08] VITALS: BP 124/62
[2017-06-08 04:00] VITALS: BP 141/61
[2017-06-08] MEDS ORDERED: PERCOCET 10/3251 TA1 PO (07:39)
[2017-06-08 07:50] VITALS: BP 140/75
--- NOTE | 2017-06-08 08:30 | NUR ---
ASSESSMENT COMPLETE. SL TO L HAND PATENT. SCD IN USE TO R LEG. HINGED BRACE IN USE TO L LEG. DRESSING TO L LEG C/D/I. DENIES ANY NEEDS AT THIS TIME.
--- NOTE | 2017-06-08 11:30 | NUR ---
COMPLAINING OF PAIN TO L KNEE. PERCOCET GIVEN. SL REMOVED. CATHETER TIP INTACT. DRESSING APPLIED.
--- NOTE | 2017-06-08 12:10 | NUR ---
REPORT CALLED TO JAY JAY AT [facility]. TRANSFER ARRANGED FOR 1-3 PM BY [facility]
--- NOTE | 2017-06-08 13:45 | NUR ---
DRSG TO L KNEE CHANGED ORDERED, C/D/I, TOLERATED WITH MINIMAL DISCOMFORT. BRACE IN PLACE.
--- NOTE | 2017-06-08 15:30 | NUR ---
PERCOCET GIVEN FOR COMPLAINT OF KNEE PAIN.
--- NOTE | 2017-06-08 15:49 | NUR ---
DC'D TO [facility] WITH PATIENT TRANSPORTER WITH BELONGINGS AND SCRIPT FOR PERCOCET AND EXTRA AQUACEL AG DRESSING.
--- NOTE | 2017-06-08 15:49 | NUR ---
Patient discharged to [facility] to a skilled bed via [facility].
--- NOTE | 2017-07-31 15:18 | OP ---
PATIENT NAME: SWAPNA CAR MEDICAL RECORD: [id number] :64 LOCATION:D.[id number] ADMISSION DATE:06/05/17 SURGEON: PARKER JAQUEZ MD DATE OF OPERATION: 06/05/2017 PREOPERATIVE DIAGNOSIS: Previous infected total knee. POSTOPERATIVE DIAGNOSIS: Previous infected total knee. PROCEDURE: Revision total knee arthroplasty with cement spacer removal. SURGEON: Parker Jaquez MD ANESTHESIA: General. INTRAOPERATIVE COMPLICATIONS: None. SUMMARY OF PATHOLOGIC FINDINGS: The patient's knee cavity was in good condition; however, the quadriceps mechanism was in poor condition. It required extensive repair; however, there was no indication of infections and intraoperative Gram stain was negative. OPERATIVE SUMMARY IN DETAIL: After obtaining the appropriate preoperative orthopedic surgery consent as well as anesthetic consultation, evaluation and clearance, the patient was brought to the operating room and placed on operating table in supine position. After general laryngeal mask airway anesthesia was administered, tourniquet was placed about the proximal aspect of left lower extremity. Left lower extremity was then prepped and draped in routine sterile fashion. The leg was elevated and exsanguinated, tourniquet inflated to 350 mmHg. Midline incision was taken down. The patient had a substantial amount of scar tissue. The dissection was carried around the patella. Care was taken to not disrupt previous soft tissues. At this point, the previously placed cement spacer was removed, distal femur was exposed. Cultures were taken at this point that showed negative Gram stain. Serial and sequential reaming was done for the distal femur. Distal femoral cleanup cuts were made. This was followed by proximal tibial cleanup cuts after serial and sequential reaming. Final chamfer cuts were made for the revision total knee arthroplasty and the trial was put together on the back field, placed in the knee, and taken through range of motion and found to be stable in all planes. Again, the trials were removed, copious pulsatile lavage irrigation was underway while the final components were constructed on the back table. The tibia and the femur were press fit and cemented on the ends. Final components were put into place. Excess cement was removed. After the knee was allowed to harden, the knee was gently taken through range of motion without patellar subluxation. Paramedian arthrotomy was closed with #2 Ethibond followed by #1 Vicryl, 2-0 Vicryl and skin diane. Sterile dressings were applied. Tourniquet was deflated. The patient was awakened, taken to recovery room in stable condition. All final needle and sponge counts were correct. TRANSINT:[id number] Voice Confirmation ID: [id number] DOCUMENT ID: [id number] OPERATIVE REPORT [id number] SWAPNA CAR MD, PARKER GUTIERREZ at 1518 CC: [id number] DICTATION DATE: 07/31/17950 IMMERSION METALCLEANER: 07/31/17 1311 DIS IN 06/08/17 [place] [id number] [place] [address]
[2017-08-03] MEDS ORDERED: SINEQUAN25 MG PO (13:54)
[2017-08-03] MEDS ORDERED: MELATONIN 3 MG1 TAB PO (13:56)
[2017-08-03] MEDS ORDERED: MULTIPLE VITAMI1 TA1 PO (13:58)
== END 2017-06-08 15:45 | DRG 467 ==
LOC: D.SDCHOLD 06-05 07:31 → D.MS 06-05 07:31 → D.SDCHOLD 06-05 09:20 → D.MS 06-05 12:56
PROVIDERS: ADMIT Orthopaedic Surgery
PROC: 0SRD0J9 Replacement of Left Knee Joint with Synthetic Substitute, Cemented, Open Approach (ICD-10-PCS; 2017-06-05)
PROC: 0SPD08Z Removal of Spacer from Left Knee Joint, Open Approach (ICD-10-PCS; 2017-06-05)
PROC: 0SPD0JZ Removal of Synthetic Substitute from Left Knee Joint, Open Approach (ICD-10-PCS; principal; 2017-06-05 09:30)
DX: Z47.33 Aftercare following explantation of knee joint prosthesis (principal); D62 Acute posthemorrhagic anemia; I10 Essential (primary) hypertension; G62.9 Polyneuropathy, unspecified; K75.9 Inflammatory liver disease, unspecified; E03.9 Hypothyroidism, unspecified

== ENCOUNTER 2017-06-11 08:25 | Emergency (ER) | payer MEDICAID ==
[2017-06-05 18:44] VITALS: BMI 41.1
[~2017-06-11 08:25] MED LIST changes: +CATAPRES0.1 MG PO; +HYDROCODONE-APA1 TAB PO; +VITAMIN D250000 UNIT PO
[2017-06-11 09:00] LABS: BASOPHILS 0.4 % (0-2); EOSINOPHILS 3.8 % (0-7); HEMATOCRIT 27.8 % (36.0-48.0); HEMOGLOBIN 8.6 g/dL (12-16); IMMATURE GRANULOCYTES 0.4 % (0-5); LYMPHOCYTES 20.3 % (15-50); MCH 25.7 pg (26.0-34.0); MCHC 30.9 g/dL (31.0-37.0); MCV 83.2 fL (80.0-100.0); MEAN PLATELET VOLUME 8.5 fL (7.4-10.4); MONOCYTES 8.6 % (2-11); NEUTROPHILS 66.5 % (40-80); RBC 3.34 10x6/uL (4.00-5.40); RDW 15.2 % (11.5-14.5); WBC 8.1 10x3/uL (4.8-10.8)
[2017-06-11 09:02] LABS: PLATELET COUNT 257 10x3/uL (130-400)
[2017-06-11 09:13] LABS: ALBUMIN 2.8 g/dL (3.4-5.0); ANION GAP 11.4 mmol/L (8-16); BILIRUBIN - TOTAL 0.87 mg/dL (0.2-1.3); CALCIUM 8.5 mg/dL (8.5-10.1); CARBON DIOXIDE 29.4 mmol/L (21.0-32.0); CREATININE - SERUM 0.9 mg/dL (0.6-1.3); POTASSIUM - SERUM 3.8 mmol/L (3.5-5.1)
[2017-08-03] MEDS ORDERED: SINEQUAN25 MG PO (13:54)
[2017-08-03] MEDS ORDERED: MELATONIN 3 MG1 TAB PO (13:56)
[2017-08-03] MEDS ORDERED: MULTIPLE VITAMI1 TA1 PO (13:58)
== END 2017-06-11 12:31 | disposition home or self-care (01) ==
LOC: D.ER 08:25
PROVIDERS: Family Medicine
DX: T81.31XA Disruption of external operation (surgical) wound, not elsewhere classified, initial encounter (principal); L03.116 Cellulitis of left lower limb

== ENCOUNTER → 2017-06-21 08:53 | Outpatient (CLI) | payer MEDICAID ==
[2017-06-05 18:44] VITALS: BMI 41.1
[~2017-06-21 08:53] MED LIST changes: +MELATONIN 3 MG1 TAB PO; +MULTIPLE VITAMI1 TA1 PO; +SINEQUAN25 MG PO
[2017-06-25 16:07] LABS: AEROBE ID Final report (())
== END | disposition home or self-care (01) ==
LOC: D.LABREF 08:53
PROVIDERS: Orthopaedic Surgery
DX: L03.116 Cellulitis of left lower limb (principal)

== ENCOUNTER 2017-07-07 11:15 | Inpatient (IN) | payer MEDICAID ==
[~2017-07-07] VITALS: Ht 172.7 cm; Wt 113.9 kg
--- NOTE | ~2017-07-07 | OP ---
PATIENT NAME: SWAPNA SCHAEFFER MEDICAL RECORD: [id number] :64 LOCATION:D.[id number] ADMISSION DATE:07/07/17 SURGEON: PARKER JAQUEZ MD DATE OF OPERATION: 07/07/2017 PREOPERATIVE DIAGNOSIS: Infected wound over the left total knee. 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 OTHER DIAGNOSIS: Left nondisplaced tibia fracture. PROCEDURES: Excisional debridement to include skin and subcutaneous tissue, portions of fat, fascia, muscle, bone 20 cm times 2 and application of a negative pressure wound VAC. SURGEON: Parker Jaquez MD ANESTHESIA: General. INTRAOPERATIVE COMPLICATIONS: None. 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 OPERATIVE SUMMARY IN DETAIL: After obtaining the appropriate preoperative orthopedic surgery consent as well as anesthetic consultation, evaluation and clearance, the patient was brought to the operating room and placed on the operating table in supine position. After general laryngeal mask airway was administered, tourniquet was placed about the proximal aspect of the left lower extremity. Left lower extremity was gently prepped and draped in routine sterile fashion. Incision was elongated both distally and proximally. Cultures were taken. Immediate encountering of the medial femoral condyle was noted. The bone was scraped on the edge and cultures were sent along with the other cultures using curettage. Copious I&D was then done to cleanse the entire knee of all infectious appearing material. The quadriceps was examined and it was noted to be as above. At this point, the wound VAC was applied and placed in the 125 mL of suction with intermittent pressure continuous. She was taken to recovery room in stable condition. All final needle and sponge counts were correct. TRANSINT:[id number] Voice Confirmation ID: [id number] DOCUMENT ID: [id number] PARKER JAQUEZ MD at 1657 CC: [id number] DICTATION DATE: 07/07/17 1451 ANALYTICAL MANAGER: 07/07/17 1601 DIS IN 07/08/[address] [place], [place] [id number]
[~2017-07-07 11:15] MED LIST changes: -MELATONIN 3 MG1 TAB PO; -MULTIPLE VITAMI1 TA1 PO; -SINEQUAN25 MG PO
[2017-07-07 12:00] VITALS: BP 112/67; BMI 38.1
[2017-07-07 12:38] LABS: BASOPHILS 0.3 % (0-2); EOSINOPHILS 2.7 % (0-7); HEMATOCRIT 29.6 % (36.0-48.0); IMMATURE GRANULOCYTES 0.3 % (0-5); LYMPHOCYTES 31.3 % (15-50); MCH 24.2 pg (26.0-34.0); MCHC 30.4 g/dL (31.0-37.0); MCV 79.6 fL (80.0-100.0); MEAN PLATELET VOLUME 8.3 fL (7.4-10.4); NEUTROPHILS 59.4 % (40-80); PLATELET COUNT 304 10x3/uL (130-400); RBC 3.72 10x6/uL (4.00-5.40)
[2017-07-07 12:57] LABS: ANION GAP 11.9 mmol/L (8-16); CALCIUM 9.3 mg/dL (8.5-10.1); CARBON DIOXIDE 27.4 mmol/L (21.0-32.0); CREATININE - SERUM 1.2 mg/dL (0.6-1.3); POTASSIUM - SERUM 4.3 mmol/L (3.5-5.1)
[2017-07-07 16:20] VITALS: BP 129/61
[2017-07-07 18:31] VITALS: BP 129/61; Ht 172.7 cm; Wt 113.9 kg
[2017-07-07 20:00] VITALS: BP 105/52
[2017-07-08 04:00] VITALS: BP 124/60
[2017-07-08 07:09] LABS: HEMOGLOBIN 9.1 g/dL (12-16)
[2017-07-08 08:16] VITALS: BP 119/73
[2017-07-13 16:14] LABS: AEROBE ID Final report (())
[2017-08-03] MEDS ORDERED: SINEQUAN25 MG PO (13:54)
[2017-08-03] MEDS ORDERED: MELATONIN 3 MG1 TAB PO (13:56)
[2017-08-03] MEDS ORDERED: MULTIPLE VITAMI1 TA1 PO (13:58)
== END 2017-07-08 12:00 | DRG 498 ==
LOC: D.MS 11:15 → D.OPS 11:15 → EDSTATUS 13:00 → D.OPS 13:00 → D.MS 15:29 → D.OPS 15:29 → D.MS 07-08 12:00 → D.OPS 07-08 12:00 → D.MS 07-08 12:00
PROVIDERS: Anesthesiology; Orthopaedic Surgery
PROC: 0QBC0ZZ Excision of Left Lower Femur, Open Approach (ICD-10-PCS; principal; 2017-07-07 13:00)
DX: T84.54XA Infection and inflammatory reaction due to internal left knee prosthesis, initial encounter (principal); S82.202A Unspecified fracture of shaft of left tibia, initial encounter for closed fracture; J44.9 Chronic obstructive pulmonary disease, unspecified; F17.200 Nicotine dependence, unspecified, uncomplicated; X58.XXXA Exposure to other specified factors, initial encounter

== ENCOUNTER 2017-08-07 06:37 | Inpatient (IN) | payer MEDICAID ==
[2017-08-03 14:45] LABS: HEMATOCRIT 29.7 % (36.0-48.0); HEMOGLOBIN 8.8 g/dL (12-16); MCH 23.6 pg (26.0-34.0); MCHC 29.6 g/dL (31.0-37.0); MCV 79.6 fL (80.0-100.0); MEAN PLATELET VOLUME 8.2 fL (7.4-10.4); RBC 3.73 10x6/uL (4.00-5.40); WBC 6.7 10x3/uL (4.8-10.8)
[2017-08-03 15:14] LABS: ANION GAP 14.4 mmol/L (8-16); BILIRUBIN - TOTAL 0.28 mg/dL (0.2-1.3); CALCIUM 8.2 mg/dL (8.5-10.1); CARBON DIOXIDE 25.7 mmol/L (21.0-32.0); CREATININE - SERUM 1.1 mg/dL (0.6-1.3); POTASSIUM - SERUM 4.1 mmol/L (3.5-5.1)
[~2017-08-07] VITALS: Ht 172.7 cm; Wt 93.4 kg
--- NOTE | ~2017-08-07 | OP ---
PATIENT NAME: SWAPNA SCHAEFFER MEDICAL RECORD: [id number] :64 LOCATION:D.[id number] ADMISSION DATE:08/07/17 SURGEON: PARKER JAQUEZ MD DATE OF OPERATION: 08/07/2017 PREOPERATIVE DIAGNOSIS: Recurrent infected total knee, left. POSTOPERATIVE DIAGNOSIS: Recurrent infected total knee, left. PROCEDURE: 1. Excision of total knee arthroplasty. 2. Excisional debridement of knee cavity to include skin, subcutaneous tissue, portions of fat, fascia, muscle and bone. Approximately 60 cm in aggregate. SURGEON: Parker Jaquez MD ANESTHESIA: General. INTRAOPERATIVE COMPLICATIONS: None. SUMMARY OF PATHOLOGIC FINDINGS: The patient indeed did have a loose femoral component consistent with the preoperative diagnosis of recurrent infection. INDICATIONS: Ms. Schaeffer is a 57-year-old female who was initially done by another physician. She presented to my office after that physician left [facility] with an infected total knee. Multiple attempts now to try and salvage this knee had failed as she comes back with recurrent albeit different infections. She now has essentially no quad tendon left from the infectious process. After the risks, hazards, and benefits were discussed, the patient wished to proceed with excision of the total knee arthroplasty to try to eradicate the infection and then fuse the knee with a long fusion nail. OPERATIVE SUMMARY IN DETAIL: After obtaining the appropriate preoperative orthopedic surgery consent as well as anesthetic consultation, evaluation and clearance, the patient was brought to the operating room and placed on the operating table in supine position. After adequate general laryngeal mask airway was administered, tourniquet was placed about the proximal aspect of the right lower extremity. Wound VAC was removed. Right lower extremity was then prepped and draped in a routine sterile fashion. Incision was made in line actually with the area of opening, which was not over the original incision. It was taken down to the level for a paramedian arthrotomy. Distal femur was exposed. At this point, the polyethylene was removed by cutting the polyethylene post and removing the steel prudencio. The poly was then removed and the femur came out with very gentle taps as it was clearly loosened and had infection underneath it. The tibia was then liberated using a power saw and it also was removed with very little bone loss. At this point, scalpel, knife and rongeur were used to remove all nonviable and infectious appearing tissue. The bone was scraped back to bone, taking down all overgrowth on both the tibia and the femur. After this, pulsatile lavage was utilized to cleanse the wound and then a second time was taken with a rongeur, scalpel and a curette to try and eradicate any infectious or nonviable-appearing tissue. Further pulsatile lavage was then followed by a very complex closure, which required #5 Ethibond and #2 Prolene in a xomm-frm-lqd-near fashion. The open wound was reapproximated after excision of the sides. It was reapproximated using pycp-[id number]-[id number]-near sutures as well as horizontal mattress sutures. The entire OPERATIVE REPORT [id number] SWAPNA SCHAEFFER wound was closed, sterile dressings were applied. Tourniquet was deflated. The patient was awakened, taken to recovery room in stable condition. All final needle and sponge counts were correct. TRANSINT:[id number] Voice Confirmation ID: [id number] DOCUMENT ID: [id number] PARKER JAQUEZ MD at 0756 CC: [id number] DICTATION DATE: 08/07/17 1028 PHARMACY TEACHER: 08/07/17 1228 DIS IN 08/09/17 [facility] [address] [place] [address]
[~2017-08-07 06:37] MED LIST changes: +MELATONIN 3 MG1 TAB PO; +MULTIPLE VITAMI1 TA1 PO; +SINEQUAN25 MG PO
[2017-08-07 07:15] VITALS: BP 93/49; BMI 44.0
[2017-08-07 11:38] VITALS: BP 102/56
[2017-08-07 14:05] VITALS: BP 105/60; BMI 31.3
[2017-08-07 19:19] LABS: HEMATOCRIT 24.6 % (36.0-48.0)
[2017-08-07 19:27] LABS: HEMOGLOBIN 7.2 g/dL (12-16)
[2017-08-07 22:21] VITALS: BP 99/52
[2017-08-08] VITALS (12 sets, daily range): BP systolic 116–152; BP diastolic 37–93; Ht 172.7 cm; Wt 93.4 kg
[2017-08-08 12:22] LABS: MCH 24.2 pg (26.0-34.0); MCHC 30.1 g/dL (31.0-37.0); MCV 80.4 fL (80.0-100.0); MEAN PLATELET VOLUME 8.5 fL (7.4-10.4); PLATELET COUNT 268 10x3/uL (130-400); RBC 3.72 10x6/uL (4.00-5.40); RDW 16.3 % (11.5-14.5)
[2017-08-08 12:44] LABS: HEMATOCRIT 29.9 % (36.0-48.0)
[2017-08-08 12:48] LABS: ANION GAP 10.3 mmol/L (8-16); C-REACTIVE PROTEIN 4.1 mg/dL (0.0-0.9); CALCIUM 8.4 mg/dL (8.5-10.1); POTASSIUM - SERUM 4.3 mmol/L (3.5-5.1)
[2017-08-08 13:58] LABS: ERYTHROCYTE SEDIMENTATION RATE 51 mm/hr (0-30)
[2017-08-09 01:36] VITALS: BP 105/44
[2017-08-09 04:46] VITALS: BP 126/52
[2017-08-09 06:23] LABS: HEMOGLOBIN 8.7 g/dL (12-16); MCH 24.4 pg (26.0-34.0); MCV 81.2 fL (80.0-100.0); MEAN PLATELET VOLUME 8.6 fL (7.4-10.4); RBC 3.57 10x6/uL (4.00-5.40); RDW 16.6 % (11.5-14.5)
[2017-08-09 06:47] LABS: ANION GAP 12.1 mmol/L (8-16); CALCIUM 7.8 mg/dL (8.5-10.1); CARBON DIOXIDE 26.6 mmol/L (21.0-32.0); POTASSIUM - SERUM 3.7 mmol/L (3.5-5.1)
[2017-08-09] MEDS ORDERED: VANCOMYCIN 1 GM/1 G1 IV (07:39)
[2017-08-09 10:33] VITALS: BP 98/53
[2017-08-09 11:35] VITALS: BP 110/56
== END 2017-08-09 15:40 | DRG 464 ==
LOC: D.MS 06:37 → D.SDCHOLD 06:37 → D.MS 11:27
PROVIDERS: Anesthesiology; Orthopaedic Surgery; Student in an Organized Health Care Education/Training Program
PROC: 0SPD0JZ Removal of Synthetic Substitute from Left Knee Joint, Open Approach (ICD-10-PCS; principal; 2017-08-07 07:30)
PROC: 02HV33Z Insertion of Infusion Device into Superior Vena Cava, Percutaneous Approach (ICD-10-PCS; 2017-08-09)
PROC: B548ZZA Ultrasonography of Superior Vena Cava, Guidance (ICD-10-PCS; 2017-08-09)
DX: T84.54XA Infection and inflammatory reaction due to internal left knee prosthesis, initial encounter (principal); D62 Acute posthemorrhagic anemia; F17.203 Nicotine dependence unspecified, with withdrawal; B95.62 Methicillin resistant Staphylococcus aureus infection as the cause of diseases classified elsewhere; B96.89 Other specified bacterial agents as the cause of diseases classified elsewhere; I10 Essential (primary) hypertension; M81.0 Age-related osteoporosis without current pathological fracture; F41.8 Other specified anxiety disorders; G62.9 Polyneuropathy, unspecified; B19.20 Unspecified viral hepatitis C without hepatic coma

== ENCOUNTER → 2020-03-30 | Emergency (ER) | payer MEDICAID ==
[~2020-03-30] VITALS: Ht 172.7 cm; Wt 115.9 kg
[2020-03-30 14:34] VITALS: BP 109/86; Ht 172.7 cm; Wt 115.9 kg
== END | disposition home or self-care (01) ==
LOC: D.ER 14:08
DX: L08.9 Local infection of the skin and subcutaneous tissue, unspecified (principal)

== ENCOUNTER → 2020-03-31 | Emergency (ER) | payer MEDICAID ==
[~2020-03-31] VITALS: Ht 172.7 cm; Wt 115.9 kg
[2020-03-31 07:18] VITALS: Ht 172.7 cm; Wt 115.9 kg
[2020-03-31 19:43] VITALS: BP 124/84
== END | disposition home or self-care (01) ==
LOC: D.ER 06:47
DX: T81.30XA Disruption of wound, unspecified, initial encounter (principal); G62.9 Polyneuropathy, unspecified; E07.9 Disorder of thyroid, unspecified; I10 Essential (primary) hypertension; Z72.0 Tobacco use